=== PATIENT | male | born 1965 | race Hispanic/Latino ===

== ENCOUNTER 2024-01-31 07:35 | Emergency (ER) | payer SELFPAY ==
--- NOTE | ~2024-01-31 | CT_ITS ---
Non-contrast Head CT History: Status post fall Technique: Axial non-contrast imaging of the brain was performed. Dose reduction technique was used on this scan by utilizing automated exposure control and iterative reconstruction technique. The dose -length product (DLP) was 605.33 mGy-cm. Findings: There is no evidence of intracranial hemorrhage, mass lesion, or acute infarct. Brain par enchyma appears normal. The ventricles and subarachnoid spaces are normal in size. The calvarium ap pears normal. The visualized paranasal sinuses and mastoid air cells are clear. Impression: No significant abnormality seen. Reviewed, dictated and finalized at location . Impression: No significant abnormality seen.
--- NOTE | ~2024-01-31 | CT_ITS ---
CT cervical spine wo con Ordering provider: Gomez Joshi MD History: . Fall down 6 stairs. ETOH, Head trauma . Comparison: None. Technique: CT of the cervical spine was performed without contrast. Sagittal and coronal reformatted images were also obtained and reviewed. Automated exposure control and iterative reconstruction nabeel hnique were employed. The dose-length product was 279.74 mGy-cm. FINDINGS: VERTEBRAE: No subluxation or acute fracture. The occipital condyles are intact. Degenerative changes of the spine. DISC SPACES: Normal. PARASPINOUS SOFT TISSUES: Normal. IMPRESSION: No acute osseous abnormality cervical spine. Reviewed, dictated and finalized at location A.
[2024-01-31 07:38] VITALS: BP 147/77; PULSE 77; RESP 15; TEMP 36.4; O2SAT 97
--- NOTE | 2024-01-31 07:51 | ED.GENADULT ---
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 58-year-old male with history of daily alcohol use presenting after a fall. The daughter he drink more than usual last night fell down 6 stairs outside of his house. He struck his head and sustained a laceration to his scalp. Patient denies loss of consciousness or use of blood thinners. He denies any other injuries. He denies any prodromal symptoms before the fall. Unknown last tetanus. Related Data Allergies Allergy/AdvReac Type Severity Reaction Status Date / Time No Known Allergies Allergy Verified 01/31/24 07:38 [facility] Past Medical History Medical History ETOHism Exam Narrative: APPEARANCE: No apparent distress. Smells of alcohol Head: 5 cm laceration to the right parietal scalp. EYES: EOMI, NOSE: Atraumatic NECK: Trachea midline RESPIRATORY: No increased rate of breathing CARDIOVASCULAR: RRR, ABDOMINAL: Non-distended MUSCULOSKELETAl: No obvious deformities patient was palpated head to toe no other areas of pain. Neuro: Cranial nerves 2-12 grossly intact. Sensation light touch, motor function cerebellar function intact for 4 extremities. Gait exam was deferred SKIN:: Warm, dry. Normal color PSYCHIATRIC: Normal affect Course Vital Signs Vital signs: Vital Signs Temperature 97.5 F L 01/31/24 07:38 Pulse Rate 77 01/31/24 07:38 Respiratory Rate 15 01/31/24 07:38 Blood Pressure 147/77 H 01/31/24 07:38 Pulse Oximetry 97 01/31/24 07:38 Oxygen Delivery Room Air 01/31/24 07:38 Temperature 97.5 F L 01/31/24 07:38 Pulse Rate 77 01/31/24 07:38 Respiratory Rate 15 01/31/24 07:38 Blood Pressure 147/77 H 01/31/24 07:38 Pulse Oximetry 97 01/31/24 07:38 Oxygen Delivery Room Air 01/31/24 07:38 Medical Decision Making [facility] Narrative Medical decision making narrative: -Course: 58-year-old male presenting with a fall and a scalp laceration. Scalp laceration was repaired. CT head and C-spine negative for acute injury. patient discharged. -DDX includes but is not limited to: Concussion, ICH scalp injury -Co-morbidities complicating care: Daily alcohol use, -Independent interpretation of studies: CT head and C-spine negative. -Procedures: 5 cm laceration to the scalp repaired using x6 4-0 Prolene sutures. Wound explored without foreign bodies and irrigated copiously. -Interventions: Tdap -Shared decision making / Disposition:discharged. Vital Signs Vital Signs: Vital Signs Temperature 97.5 F L 01/31/24 07:38 Pulse Rate 77 01/31/24 07:38 Respiratory Rate 15 01/31/24 07:38 Blood Pressure 147/77 H 01/31/24 07:38 Pulse Oximetry 97 01/31/24 07:38 Oxygen Delivery Room Air 01/31/24 07:38 Temperature 97.5 F L 01/31/24 07:38 Pulse Rate 77 01/31/24 07:38 Respiratory Rate 15 01/31/24 07:38 Blood Pressure 147/77 H 01/31/24 07:38 Pulse Oximetry 97 01/31/24 07:38 Oxygen Delivery Room Air 01/31/24 07:38 Discharge Plan Discharge Clinical Impression: Laceration, Fall Patient Disposition: Home, Self-Care Condition: Stable Instructions: Antibiotic Form, Care For Your Stitches (ED) Additional Instructions: He was seen emergency department after a fall. Please be careful when going down the stairs after drinking a large amount of alcohol. Please return to any medical professional in 7 days for suture removal. Return to ED if he develops signs of infection confusion or you would like re-evaluation Fue atendido en urgencias tras michael ca?da. Tenga cuidado al bajar las escaleras despu?s de melisa bebido michael gran cantidad de alcohol. Vuelva a consultar a un profesional m?dico en 7 d?as para que le extraigan los puntos. V
[2024-01-31] MEDS: TETANUS,DIPHTHERIA,AC PERTUSSIS ADULT (0.5 ML) BOOSTRIX IM (07:59)
[2024-01-31 09:10] VITALS: BP 146/76; PULSE 74; RESP 16; TEMP 36.7; O2SAT 99
== END 2024-01-31 09:12 | disposition home or self-care (01) ==
PROVIDERS: Emergency Provider Emergency Medicine
DX: S01.01XA Laceration without foreign body of scalp, initial encounter (principal); W10.9XXA Fall (on) (from) unspecified stairs and steps, initial encounter; Z23 Encounter for immunization
CPT/HCPCS: 12002; 70450; 72125; 90471; 90715; 99284

== ENCOUNTER 2025-02-04 19:48 | Emergency (ER) | payer SELFPAY ==
--- OUTSIDE RECORDS SUMMARY | 2025-02-04 19:49 | XMS_ITS | Clinical Summary ---
Author Organization [facility] Address [address] [place] [address] Care Team Providers Care Delivery Truck Driver Name Role Phone Unavailable Primary Care Provider Unavailabl e Source Comments You are receiving this document as you are listed as the PCP, follow-upprovider, or the patient hasbeen referred to you for consultation. This is incompliance with [facility] Transitions of Care Requirement. Note: Specific treatmentrecords and notes about services for mental health, developmental disabilities,alcoholism, drug dependence, or substance abuse, you will need to contact theMedical Records Department at [phone] and complete a separate Release ofAuthorization form. They are also available to answer other questions.[facility] Social History Tobacco Use Types Packs/Day Years Used Date Smoking Tobacco: Never Assessed Sex and Gender Information Value Date Recorded Sex Assigned at Not on file Gender Identity Not on file Sexual Orientation Not on file Plan of Treatment Health Maintenance Due Date Last Done Comments ANNUAL DEPRESSION SCREENING,ADULT 1965 ANNUAL BMI COUNSELING 1966 HIV SCREEN 11/22/1979 ADULT VACCINE: TETANUS( TD) BOOSTER,EVERY 10 YR 11/22/1983 CHOL SCREENING: EVERY 5 YEARS 1984 CA SCREENING: COLONOSCOPY,EV [place]ARK 10 YEARS,ROUTINE 09/21/2014 ADULT VACCINE: SHINGRIX (1 of 2) 2014 Covid-19 Vaccine ( - 2023-2 5 season) 2024 INFLUENZA VACCINE (#1) 2025 ADULT RSV > 60 YRS & PREGNAN T PATIENTS (1 - 1-dose 75+ series) 11/22/2039 PEDS RSV < 20 MON Aged Out No longer eligible based on patient's age to complete this topic PNEUMOCOCCAL VACCINE Aged Out No long er eligible based on patient's age to complete this topic
--- OUTSIDE RECORDS SUMMARY | 2025-02-04 19:49 | XMS_ITS | Clinical Summary ---
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 Automation Analyst Name Role Phone Unavailable Primary Care Provider Unavailabl e Allergies No known active allergies Medications No known medications Active Problems Problem Noted Date Diagnosed Date Smoker 09/24/2016 Social History Tobacco Use Types Packs/Day Years Used Date Smoking Tobacco: Every Day Cigarettes Smokeless Tobacco: Never Tobacco Cessation:Ready to Q uit: No; Counseling Given: Yes Intimate Partner Violence Answer Date R ecorded Feels Safe at Home Not on file 02/26/2021 Sex and Gender Information Value Date Recorded Sex Assigned at Not on file Legal Sex Male 11:10 AM CDT Gender Identity Not on file Sexual Orientation Not on file Last Filed Vital Signs Vital Sign Reading Time Taken Comments Blood Pressure 138/70 09/24/2016 11:46 AM CDT Pulse 84 09/24/2016 11:46 AM CDT Temperature 37.1 C (98.7 F) 09/24/2016 11:46 AM CDT Respiratory Rate 18 09/24/2016 11:46 AM CDT Oxygen Saturation - - Inhaled Oxygen Concentration - - Weight 76.7 kg (169 lb) 09/24/2016 11:46 AM CDT Height 165.1 cm (5' 5) 09/24/2016 11:46 AM CDT Body Mass Index 28.12 09/24/2016 11:46 AM CDT Plan of Treatment Health Maintenance Due Date Last Done Comments Annual Preventive Visit 1965 HIV Screening 1977 Tdap/DTaP/Td Vaccine (1 - Tdap) 11/22/1983 CT Colonography 11/22/1999 Colonoscopy 11/22/1999 Colorectal Cancer Screening 11/22/1999 FIT-DNA 11/22/1999 FIT/FOBT 11/22/1999 Sigmoidoscopy 11/22/1999 Pneumococcal Vaccine: 50+ Years (1 of 1 - PCV) 015 Zoster Vaccine (1 of 2) 2014 COVID-19 Vaccine (1 - 2023- season) 2024 Influenza Vaccine (#1) 2025 RSV 60+ and Currently (1 - 1-dose 75+ series) 11/22/2039
--- OUTSIDE RECORDS SUMMARY | 2025-02-04 19:50 | XMS_ITS | Clinical Summary ---
Author Organization [facility] Address [address] [place] [address] Care Team Providers Care Comprehensive Advisor Name Role Phone Pcp, No Primary Care Provider [phone] Allergies No known active allergies Medications metFORMIN (GLUCOPHAGE) 500 MG tablet Take 500 mg by mouth 2 (two) times a day with meals. Active amLODIPine (NORVASC) 10 MG tablet Take 10 mg by mouth daily. Active cholecalciferol , vitamin D3, (VITAMIN D3) 1,000 Units tablet Take 1,000 Units by mouth daily. Active cyanocobalamin 50 mcg tablet Take 50 mcg by mouth daily. Active omeprazole (PriLOSEC) 40 MG capsuleIndicati ons:Perforated duodenal ulcer (HCC) Take 1 capsule (40 mg total) by mouth daily. 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 Chronic cholecystitis 11/10/2014 Hematemesis 11/09/2014 Duodenitis 11/09/2014 Family History Medical History Relation Comments Cholelithiasis Brother Cholelithiasis Father Diabetes Mother Cholelithiasis Sister Cancer Neg Hx Relation Status Comments Brother Daughter Alive Father Mother Sister Son Alive Social History Tobacco Use Types Packs/Day Years Used Date Smoking Tobacco: Every Day Cigarettes 1.5 20 Smokeless Tobacco: Never Tobacco Cessation:Ready to Q uit: Yes; Counseling Given: Yes Alcohol Use Standard Drinks/Week Comments Yes 42 (1 standard drink = 0.6 oz pure alcohol) Previously drank on a daily basis. Last ETOH 02/22/2021 AUDIT-C Answer Date Recorded Q1: How often do you have a drink containing alcohol? 4 or more times a week 02/25/2021 Q2: How many drinks containi ng alcohol do you have on a typical day when you are drinking? 3 or 4 Frequency of Binge Drinking Not on file 02/02 PHQ-2 Answer Date Recorded PHQ-2 Score 0 02/25/2021 Hunger Vital Sign Answer Date Recorded Within the past 12 months, y ou worried that your food would run out before you got the money to buy more. Never true 02/26/20 21 Within the past 12 months, t he food you bought just didn't last and you didn't have money to get more. 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 Gender Identity Not on file Sexual Orientation Not on file Last Filed Vital Signs Vital Sign Reading Time Taken Comments Blood Pressure 150/73 03/13/2021 3:09 PM CDT Pulse 79 03/13/2021 3:09 PM CDT Temperature 37.3 C (99.2 F) 03/07/2021 1:17 PM CDT Respiratory Rate 20 03/13/2021 3:09 PM CDT Oxygen Saturation 98% 03/07/2021 1:17 PM CDT Inhaled Oxygen Concentration - - Weight 70.4 kg (155 lb 3.3 oz) 03/07/2021 1:17 P M CDT Height 167.6 cm (5' 6) 03/07/2021 1:17 PM CDT Body Mass Index 25.05 03/07/2021 1:17 PM CDT Plan of Treatment Health Maintenance Due Date Last Done Comments Annual Wellness Exam with BUZZ P (Rolling Yr) 1964 CT Colonography 1964 Colonoscopy 1964 Colorectal Cancer Screening 1964 FIT / gFOBT Colorectal Cance r Screening 1964 FIT-DNA (Cologuard) 1964 Flexible Sigmoidoscopy 1964 Hepatitis C Screening 1982 DTaP,Tdap,and Td Vaccines (1 - Tdap) 11/22/1983 Pneumococcal Vaccine: 50+ Ye ars (1 of 1 - PCV) 2014 Zoster Vaccine (Shingles) (1 of 2) 2014 COVID-19 Vaccine (1 - 2023-2 5 season) 2024 Influenza Vaccine (#1) 2025 Hepatitis A Vaccines Aged Out No long er eligible based on patient's age to complete this topic Hepatitis B Vaccines Aged Out No long er eligible based on patient's age to complete this topic Meningococcal Vaccine Aged Out No johnathan dario eligible based on patient's age to complete this topic Care Teams Comprehensive Advisor Relationship Specialty Start Date End Date Pcp, No [address] [place] [address] PCP - General 02/25/21
--- OUTSIDE RECORDS SUMMARY | 2025-02-04 19:50 | XMS_ITS | Clinical Summary ---
Author Organization [facility] Address [address] [place] [address] Care Team Providers Care Band Shover Name Role Phone Provider, No Pcp Primary Care Provider Unavailab le Source Comments [facility],non-owned Affiliates and Associated Physician Practices is amultiple site organization consisting of ambulatory clinics and hospital sitesin [place], [place], [place] and [place]. This disclosure is being madepursuant to the Care Everywhere program and may not contain all information available regarding this patient. Last updated 18.[facility] Allergies Active Allergy Reactions Criticality Noted Date Comments Penicillins Other 01/14/2025 Patient states many years ago in [place] it made him faint. Medications * Be aware that medications may not be up to date on this document. Alwaysverify current medications with the patient. acetaminophen (Tylenol) 325 MG tabletIndicati ons:Pain Take 2 (two) tablets by mouth every 6 hours as needed Maximum allowable Acetaminophen amount = 4 Grams (4000 mg) / 24 hours. Reasons: Pain 01/19/20 25 Active aspirin (Aspirin) 81 MG chew tablet Take 1 (one) tablet by mouth once daily (chew and swallow) 30 tablet 5 12:20 PM CDT 01/20/20 25 Active atorvastatin (Lipitor) 40 MG tablet Take 1 (one) tablet by mouth at bedtime 30 tablet 5 12:20 PM CDT 01/19/20 25 Active lisinopril (Prinivil; Zestril) 10 MG tabletIndicati ons:Hypertensi on Take 1 (one) tablet by mouth once daily Reasons: High Blood Pressure 30 tablet 5 12:20 PM CDT 01/20/20 25 Active clopidogrel (plaVIX) 75 MG tablet Take 1 (one) tablet by mouth once daily 30 tablet 11 5 12:20 PM CDT 01/20/20 25 Active nicotine (Nicoderm CQ) 21 MG/24HR patchIndicatio ns:Dysarthria, Weakness on right side of face,Lower abdominal pain Apply 1 (one) patch to skin once daily 30 patch 01/20/20 25 Active doxycycline monohydrate 100 MG capsule Take 1 (one) capsule by mouth every 12 hours for 5 days 10 capsule 01/19/20 25 2024 Discontinued doxycycline monohydrate 100 MG capsule Take 1 (one) capsule by mouth every 12 hours for 5 days 10 capsule 5 12:20 PM CDT 01/19/20 25 2024 Active Problems Problem Noted Date Diagnosed Date Acute ischemic left MCA stroke 01/14/2025 RUE weakness 01/06/2025 Sustained horizontal conjuga te gaze deviation, ipsilateral type 01/06/2025 Right leg weakness 01/06/2025 Aphasia 01/06/2025 Internal carotid artery stenosis, left Stenosis of left carotid artery 01/06/2025 Type 2 diabetes mellitus with other specified co mplication 01/06/2025 Smoker 01/06/2025 Cardiac pacemaker 01/06/2025 Weakness on right side of face 01/06/2025 Encounters Date Type Department Care Team Description 01/28/2025 1:00 PM CDT Clinical Support [facility] - Cardiology [address] [place] [address] Sinus bradycardia 01/28/2025 Travel 01/17/2025 1:37 PM CDT Anesthesia Event [facility] - Cardiac Public Service Director [facility] [place] [address] Félix Horowitz MD Kister, Joseph Anthony, CAA 01/17/2025 11:25 AM CDT - 01/17/2025 2:05 PM CDT Surgery [facility] - Cardiac Public Service Director [address] [place] [address] Jada Connor MD Pacemaker Generator Replacement Dual Chamber 01/14/2025 7:58 AM CDT Anesthesia Event [facility] IVR [address] [place] [address] Yancy Munroe MD McDowell, Jacob A, CAA 01/06/2025 8:24 AM CDT - 01/18/2025 11:51 AM CDT Hospital Encounter [facility] [address] ACUTE [address] [place] [address] Haider Ellison MD Esechie, Aimalohi, MD Demars, MD Rolando Whitfield, MD Fil[facility] Neurology Discharge Disposition: Home or Self Care 01/06/2025 Travel from Last 3 Months Social History Tobacco Use Types Packs/Day Years Used Date Smoking Tobacco: Every Day Cigarettes Tobacco Cessation:Ready to Q uit: Not Asked; Counseling Given: Not Answered Alcohol Use Standard Drinks/Week Comments Yes 0 (1 standard drink = 0.6 oz pur e alcohol) AUDIT-C Answer Date Recorded Q1: How often do you have a drink containing alcohol? 4 or more times a week 01/07/2025 Q2: How many drinks containi ng alcohol do you have on a typical day when you are drinking? 5 or 6 Q3: How often do you have si x or more drinks on one occasion? Monthly 01/07/2025 Overall Financial Resource Strain (CARDIA) Answe r Date Recorded How hard is it for you to pa y for the very basics like food, housing, medical care, and heating? Not very hard 01/07/2025 PHQ-2 Answer Date Recorded Patient Health Questionnaire-2 Score 0 01/17/2025 [facility] Occupat ional [facility] - Occupational Stress Questionnaire Answer Date Recorded Do you feel stress - tense, restless, nervous, or anxious, or unable to sleep at night because your mind is troubled all the time - these days? To some extent 01/07/2025 Hunger Vital Sign Answer Date Recorded Within the past 12 months, y ou worried that your food would run out before you got the money to buy more. Never true 01/08/20 25 Within the past 12 months, t he food you bought just didn't last and you didn't have money to get more. Never true 01/07/2025 PRAPARE - Transportation Answer Date Re corded In the past 12 months, has l ack of transportation kept you from medical appointments or from getting medications? No 01/2025 In the past 12 months, has l ack of transportation kept you from meetings, work, or from getting things needed for daily living? No 01/07/2025 Housing Stability Vital Sign Answer Karsten e Recorded In the last 12 months, was t here a time when you were not able to pay the mortgage or rent on time? No 01/07/2025 In the past 12 months, how m any times have you moved where you were living? 0 01/07/2025 At any time in the past 12 m [facility], were you homeless or living in a assisted (including now)? No 01/07/2025 Sex and Gender Information Value Date Recorded Sex Assigned at Not on file Legal Sex Male 8:16 AM CDT Gender Identity Not on file Sexual Orientation Not on file Last Filed Vital Signs Vital Sign Reading Time Taken Comments Blood Pressure 123/62 01/18/2025 7:49 AM CDT Pulse 61 01/18/2025 7:49 AM CDT Temperature 36.4 C (97.5 F) 01/18/2025 7:49 AM CDT Respiratory Rate 18 01/18/2025 3:54 AM CDT Oxygen Saturation 100% 01/18/2025 7:49 AM CDT Inhaled Oxygen Concentration - - Weight 58.5 kg (128 lb 15.5 oz) 01/15/2025 4:00 AM CDT Height 170.2 cm (5' 7) 01/07/2025 10:0 0 AM CDT Body Mass Index 20.2 01/07/2025 10:00 AM CDT Plan of Treatment Upcoming Encounters Date Type Department Care Team (Late st Contact Info) Description 02/27/2025 11:00 AM CDT Office Visit [facility] - Neurology [address] [facility], Critical [place] [address] Filiberto Marshall MD [address] [place] [address] 03/26/2025 2:30 PM CDT Office Visit [facility] - Cardiology [address], [place] [address] [place] [phone] Do Lewis MD 04/25/2025 1:00 AM CDT Procedure visit [facility] - Cardiology [address], [place] [address] [place] [phone] 07/25/2025 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 - Cardiology [address], [address] [address] Health Maintenance Due Date Last Done Comments COLOGUARD (AGES 45-75) - COLON CA SCREENING 1964 COLON MONITORING 1964 COLONOSCOPY - COLON CA SCREENING 1964 CT COLONOGRAPHY - COLON CA SCREENING 1964 Colorectal Cancer Screening 1964 FIT - COLON CA SCREENING 1964 FLEX SIG - COLON CA SCREENING 1964 HIV SCREENING 11/22/1979 HEPATITIS C SCREENING 11/17/1982 DTAP/TDAP/TD VACCINES (1 - Tdap) 11/22/1983 PNEUMOCOCCAL VACCINE 50+ (1 of 2 - PCV) 11/22/1983 ZOSTER VACCINE (1 of 2) 2014 COVID-19 VACCINE (1 - season) 2024 DIABETES - URINE PROTEIN SCREENING 07/04/2024 Respiratory Syncytial Virus (RSV) Vaccine Pt: or over 60 yrs (1 - Risk 60-74 years 1-dose series) 2024 DIABETES RETINOPATHY SCREENING 01/06/2025 DIABETES-FOOT EXAM WITH MONOFILAMENT 01/06/2025 INFLUENZA VACCINE (#1) 2025 DIABETES-HGB A1C 07/09/2025 01/06/2025 DIABETES-SERUM CREATININE 01/18/20262024, 01/17/2025, 01/16/2025, Additional history exists DEPRESSION SCREENING Completed 01/06/2025 HEPATITIS B VACCINE Aged Out No longe r eligible based on patient's age to complete this topic HIB VACCINE Aged Out No longer eligi ble based on patient's age to complete this topic HPV VACCINE Aged Out No longer eligi ble based on patient's age to complete this topic MENINGOCOCCAL (Group B) VACCINE SHARED DECISION-MAKING Aged Out No longer eligible based on patient's age to complete this topic MENINGOCOCCAL GROUPS A/C/Y/W VACCINE Aged Out No longer eligible based on patient's age to complete this topic Medical Devices Implanted Type Area Reverse Unit Operator Device Identifier Shelf Expiration Date Model / Serial / Lot [id number] Cardiac Lead Squ[place]ka Nathaniel [id number] / / [id number] Cardiac Lead [place] [employer] Nathaniel [id number] / / [place] [employer] Dual Chamber L311 Pacemaker Heart Squ[place]ka Nathaniel [id number] / / Stent Xact 6-8mm 30mm Crtd Slf Xpd Cls Implanted:Qty : 1 on 01/14/2025 at [facility] Left: Carotid More Vascular [id number] 10/01/2026 [id number] / / [id number] Pacemkr Acld Pacesafe Ltd Nxt Easyview - [id number] Implanted:Qty : 1 on 01/17/2025 by Jada Connor MD at [facility] Left: Chest [place] [employer] Scimed [id number] 09/06/2026 [id number] / [id number] / NA Env Defib 3.3x2.9in Aigisrx Icd Tyrx Lg - [id number] Implanted:Qty : 1 on 01/17/2025 by Jada Connor MD at [facility] Left: Chest Medtronic Inc [id number] 10/04/2025 [id number] / [id number] / [id number] Procedures Procedure Name Priority Date/Time Associated Diagnosis Comments PHOSPHORUS BLOOD Routine 01/18/2025 4:12 AM CDT MAGNESIUM BLOOD Routine 01/18/2025 4:12 AM CDT CBC W/O DIFFERENTIAL Routine 01/18/2025 4:12 AM CDT BASIC METABOLIC PANEL (CALCIUM TOTAL) Routine 01/18/2025 4:12 AM CDT ELECTROPHYSIOLOGY PROCEDURE Routine 01/17/2025 3:10 PM CDT Cardiac pacemaker LIPOPROTEIN A AM Draw 01/17/2025 3:11 AM CDT APOLIPOPROTEIN B AM Draw 01/17/2025 3:11 AM CDT PHOSPHORUS BLOOD Routine 01/17/2025 3:11 AM CDT MAGNESIUM BLOOD Routine 01/17/2025 3:11 AM CDT CBC W/O DIFFERENTIAL Routine 01/17/2025 3:11 AM CDT BASIC METABOLIC PANEL (CALCIUM TOTAL) Routine 01/17/2025 3:11 AM CDT CARDIAC PROCEDURE ORDER 01/17/2025 CARDIAC PROCEDURE ORDER 01/17/2025 CARDIAC PROCEDURE ORDER 01/17/2025 PHOSPHORUS BLOOD Routine 01/16/2025 2:47 AM CDT MAGNESIUM BLOOD Routine 01/16/2025 2:47 AM CDT CBC W/O DIFFERENTIAL Routine 01/16/2025 2:47 AM CDT BASIC METABOLIC PANEL (CALCIUM TOTAL) Routine 01/16/2025 2:[address] CARDIAC ANGIO STRUCT MORPH PENDING DISCHARGE 01/15/2025 10:35 AM CDT Acute ischemic left MCA stroke (HCC) Facial droop due to acute stroke (HCC) Sustained horizontal conjugate gaze deviation, contralateral type Aphasia Weakness on right side of face PT EVAL AND TREAT Routine 01/15/2025 9:43 AM CDT OT EVAL AND TREAT Routine 01/15/2025 9:43 AM CDT BASIC METABOLIC PANEL (CALCIUM TOTAL) Timed 01/15/2025 8:25 AM CDT CBC W/O DIFFERENTIAL Routine 01/14/2025 11:30 PM CDT BASIC METABOLIC PANEL (CALCIUM TOTAL) Routine 01/14/2025 11:[address] ANGIO ABDOMEN PELVIS STAT 01/15/20 2:24 PM CDT Lower abdominal pain GLUCOSE - POINT OF CARE Routine 01/15/20 10:16 AM CDT IR CAROTID OR VERTEBRAL STENT Routine 01/14/2025 10:07 AM CDT Acute ischemic left MCA stroke (HCC) ACT LR - POCT ([facility]) Routine 01/14/2025 9:00 AM CDT ENDOTRACHEAL TUBE NOTE Routine 8:29 AM CDT PERIPHERAL IV NOTE Routine 01/14/2025 8:19 AM CDT PHOSPHORUS BLOOD Routine 01/14/2025 5:56 AM CDT MAGNESIUM BLOOD Routine 01/14/2025 5:56 AM CDT CBC W/O DIFFERENTIAL Routine 01/14/2025 5:56 AM CDT BASIC METABOLIC PANEL (CALCIUM TOTAL) Routine 01/14/2025 5:56 AM CDT PHOSPHORUS BLOOD Routine 01/13/2025 5:34 AM CDT MAGNESIUM BLOOD Routine 01/13/2025 5:34 AM CDT CBC W/O DIFFERENTIAL Routine 01/13/2025 5:34 AM CDT BASIC METABOLIC PANEL (CALCIUM TOTAL) Routine 01/13/2025 5:34 AM CDT PHOSPHORUS BLOOD Routine 01/12/2025 5:19 AM CDT MAGNESIUM BLOOD Routine 01/12/2025 5:19 AM CDT CBC W/O DIFFERENTIAL Routine 01/12/2025 4:38 AM CDT BASIC METABOLIC PANEL (CALCIUM TOTAL) Routine 01/12/2025 4:38 AM CDT PHOSPHORUS BLOOD Routine 01/11/2025 5:33 AM CDT MAGNESIUM BLOOD Routine 01/11/2025 5:33 AM CDT CBC W/O DIFFERENTIAL Routine 01/11/2025 5:33 AM CDT BASIC METABOLIC PANEL (CALCIUM TOTAL) Routine 01/11/2025 5:33 AM CDT PHOSPHORUS BLOOD Routine 01/10/2025 3:58 AM CDT MAGNESIUM BLOOD Routine 01/10/2025 3:58 AM CDT CBC W/O DIFFERENTIAL Routine 01/10/2025 3:58 AM CDT BASIC METABOLIC PANEL (CALCIUM TOTAL) Routine 01/10/2025 3:58 AM CDT EKG 12-LEAD Routine 01/09/2025 5:11 PM CDT Cardiac pacemaker ECHO COMPLETE W CONTRAST W BUBBLE STUDY Routine 01/09/2025 4:32 PM CDT RUE weakness Acute ischemic left MCA stroke (HCC) MRI BRAIN WO CONTRAST Routine 01/09/2025 1:12 PM CDT Acute ischemic left MCA stroke (HCC) PHOSPHORUS BLOOD Routine 01/09/2025 5:20 AM CDT MAGNESIUM BLOOD Routine 01/09/2025 5:20 AM CDT CBC W/O DIFFERENTIAL Routine 01/09/2025 5:20 AM CDT BASIC METABOLIC PANEL (CALCIUM TOTAL) Routine 01/09/2025 5:20 AM CDT PHOSPHORUS BLOOD Routine 01/08/2025 10:09 AM CDT MAGNESIUM BLOOD Routine 01/08/2025 10:09 AM CDT GLUCOSE - POINT OF CARE Routine 01/09/20 6:19 AM CDT CBC W/O DIFFERENTIAL Routine 01/07/2025 11:39 PM CDT BASIC METABOLIC PANEL (CALCIUM TOTAL) Routine 01/07/2025 11:39 PM CDT GLUCOSE - POINT OF CARE Routine 01/08/20 4:59 PM CDT GLUCOSE - POINT OF CARE Routine 01/08/20 12:47 PM CDT XR CHEST 1VW PORTABLE Routine 01/07/2025 11:46 AM CDT Acute ischemic left MCA stroke (HCC) CT HEAD WO CONTRAST Routine 01/07/2025 10:06 AM CDT RUE weakness Acute ischemic left MCA stroke (HCC) XR SHOULDER RIGHT 1VW Routine 01/07/2025 8:56 AM CDT RUE weakness Acute ischemic left MCA stroke (HCC) Right sided weakness PHOSPHORUS BLOOD Routine 01/07/2025 8:37 AM CDT MAGNESIUM BLOOD Routine 01/07/2025 8:37 AM CDT GLUCOSE - POINT OF CARE Routine 01/08/20 8:35 AM CDT PHOSPHORUS BLOOD Routine 01/07/2025 2:33 AM CDT MAGNESIUM BLOOD Routine 01/07/2025 2:33 AM CDT LIPID PROFILE Routine 01/07/2025 2:33 AM CDT CBC W/O DIFFERENTIAL Routine 01/07/2025 2:33 AM CDT BASIC METABOLIC PANEL (CALCIUM TOTAL) Routine 01/07/2025 2:33 AM CDT GLUCOSE - POINT OF CARE Routine 01/07/20 8:42 PM CDT HEMOGLOBIN A1C Add on 01/06/2025 4:48 PM CDT GLUCOSE - POINT OF CARE Routine 01/07/20 4:47 PM CDT TROPONIN-I HIGH SENSITIVE REFLEX 1HOUR Timed 01/06/2025 11:26 AM CDT PTT [facility] STAT 01/06/2025 10:34 AM CDT PT-INR [facility] STAT 01/06/2025 10:[address] ANGIO BRAIN NECK STROKE STAT 01/06/2025 9:09 AM CDT RUE weakness PHOSPHORUS BLOOD STAT 01/06/2025 8:57 AM CDT MAGNESIUM BLOOD STAT 01/06/2025 8:57 AM CDT TROPONIN-I HIGH SENSITIVE BASELINE + 1HR STAT 01/06/2025 8:57 AM CDT TROPONIN-I HIGH SENSITIVE STAT 01/06/2025 8:57 AM CDT COMPREHENSIVE METABOLIC PANEL STAT 01/06/2025 8:57 AM CDT CBC W AUTO DIFFERENTIAL STAT 01/07/20 8:57 AM CDT PT EVAL AND TREAT Routine 01/06/2025 8:44 AM CDT OT EVAL AND TREAT Routine 01/06/2025 8:44 AM CDT ISTAT CREATININE Routine 01/06/2025 8:36 AM CDT INR WHOLE BLOOD - POINT OF CARE (IP) STROKE Routine 01/06/2025 8:[address] BRAIN STROKE STAT 01/06/2025 8:23 AM CDT RUE weakness from Last 3 Months Results * (ABNORMAL) CBC W/O DIFFERENTIAL (01/18/2025 4:12 AM CDT) Only the most recent of12 resultswithin the time period is included. WBC 12.9(H) 4.0 - 10.7 x10E9/L 01/18/2025 4:32 AM [facility] RBC Count 3.86(L) 4.30 - 5.80 x10E12/L 01/18/2025 4:32 AM [facility] Hemoglobin 11.8(L) 13.3 - 17.5 g/dL 01/18/2025 4:32 AM [facility] Hematocrit 34.5(L) 38.7 - 51.1 % 01/18/2025 4:32 AM [facility] MCV 89.4 80.0 - 98.0 fL 01/18/2025 4:32 AM [facility] MCH 30.6 26.7 - 33.6 pg 01/18/2025 4:32 AM [facility] MCHC 34.2 31.7 - 36.3 g/dL 01/18/2025 4:32 AM [facility] RDW-CV 12.5 11.3 - 14.8 % 01/18/2025 4:32 AM [facility] Platelet Count 251 150 - 420 x10E9/L 01/18/2025 4:32 AM [facility] MPV 10.2 7.8 - 11.4 fL 01/18/2025 4:32 AM [facility] Blood BLOOD SPECIMEN / Unknown Lab Venipuncture / Unknown 01/18/2025 4:12 AM CDT 01/18/2025 4:25 AM CDT us Damaris Schmidt MD LAB - HEMATOLOGY ORDERABLES Final Result [facility] [address] [place] [address], [facility] [phone] * (ABNORMAL) BASIC METABOLIC PANEL (CALCIUM TOTAL) (01/18/2025 4:12 AM CDT) Only the most recent of13 resultswithin the time period is included. BUN 16 7 - 26 mg/dL 01/18/2025 4:58 AM [facility] Creatinine 0.47(L) 0.71 - 1.16 mg/dL 01/18/2025 4:58 AM [facility] Sodium 133(L) 136 - 145 mmol/L 01/18/2025 4:58 AM [facility] Potassium 4.2 3.5 - 4.5 mmol/L 01/18/2025 4:58 AM [facility] Chloride 104 98 - 107 mmol/L 01/18/2025 4:58 AM [facility] CO2 22 22 - 29 mmol/L 01/18/2025 4:58 AM [facility] Glucose 119(H) 70 - 99 mg/dL 01/18/2025 4:58 AM [facility] Calcium 8.7 8.4 - 10.2 mg/dL 01/18/2025 4:58 AM [facility] Anion Gap 7 6 - 16 01/18/2025 4:58 AM [facility] BUN/Creatinine Ratio 34(H) 7 - 23 01/18/2025 4:58 AM CDT [facility] Osmolality Calculated 278 275 - 295 mOsm/kg 01/18/2025 4:58 AM CDT [facility] eGFR by CKD-EPI >90 >=90 mL/min/1.7 3 m2 01/18/2025 4:58 AM CDT [facility] Comment:Estimated Glomerular Filtration Rate (eGFR) calculated using the CKD-EPI Creatinine Equation (2020), per the National Kidney Foundation and [place] Society of Nephrology recommendations. Blood BLOOD SPECIMEN / Unknown Lab Venipuncture / Unknown 01/18/2025 4:12 AM CDT 01/18/2025 4:25 AM CDT us Haider Ellison MD LAB - CHEMISTRY ORDERABLES Final Result Performing Organization Address City/[facility]/ZIP Co de Phone Number [address] [address], [place] [phone] * PHOSPHORUS BLOOD (01/18/2025 4:12 AM CDT) Only the most recent of13 resultswithin the time period is included. Phosphorus 3.9 2.8 - 5.1 mg/dL 01/18/2025 4:58 AM CDT [facility] Blood BLOOD SPECIMEN / Unknown Lab Venipuncture / Unknown 01/18/2025 4:12 AM CDT 01/18/2025 4:25 AM CDT us Damaris Schmidt MD LAB - CHEMISTRY ORDERABLES F inal Result [address] [address], [place] [phone] * MAGNESIUM BLOOD (01/18/2025 4:12 AM CDT) Only the most recent of13 resultswithin the time period is included. Magnesium 1.8 1.6 - 2.6 mg/dL 01/18/2025 4:58 AM CDT [facility] Blood BLOOD SPECIMEN / Unknown Lab Venipuncture / Unknown 01/18/2025 4:12 AM CDT 01/18/2025 4:25 AM CDT us Damaris Schmidt MD LAB - CHEMISTRY ORDERABLES F inal Result [facility] [address] [place] [address], [facility] [phone] * CCL PACEMAKER GENERATOR REPLACEMENT DUAL CHAMBER (01/17/2025 3:10 PM CDT) Anatomical Region Laterality Modality X-Ray Angiograph y Narrative 01/17/2025 5:50 PM CDT 1. Pacemaker generator change . Procedure Details Estimated Blood Loss: 10 cc mL Procedure Details and Comments: The patient was brought to the EP lab in a fasting, non-sedated state. He was prepped and draped in a sterile fasion. Lidocaine 1% was infiltrated to the left pectoral site for local anesthesia. The device pocket was then re-opened along the old incision line using a combination of electrocautery, sharp and blunt dissection. The lead(s) and generator were removed from the pocket. The generator was then disconnected. The device pocket was then irrigated with antiobiotic containing solution. Adequate pacing and sensing parameters of the atrial and ventricular leads were tested and confirmed. The new generator was then connected to the leads and re-positioned within the pocket. Estimated blood loss was less than 10 cc's. Fidencio was placed in the pocket for additional hemostasis. Tyrx pouch was used. The pocket was closed in three layers using 2-0 Vicryl for the deep, 3-0 Vicryl for the subcutaneous, and 4-0 Strata-fix for the skin. The skin edges were approximated with steri-strips and surgical glue. The patient tolerated the procedure well with no complications. A shoulder immobilizer was applied to the left arm. The patient was transported to their post procedure room in stable condition. Implant(s): Implant Name: Pacemkr Acld P[employer] Nxt Easyview - [id number] Type: Inv. Item: Pacemkr Acld [employer] Nxt Easyview Serial No.: [id number] Reverse Unit Operator: [id number] Implant Name: Env Defib 3.3X2.9In Aigisrx Icd Tyrx Lg - [id number] Type: Inv. Item: Env Defib 3.3X2.9In Aigisrx Icd Tyrx Lg Serial No.: [id number] Reverse Unit Operator: [employer] Lot No.: [id number] Previously Implanted: RV lead: Sensing: >25 mV Threshold: 0.7@0.4 ms Impedance: 550 ohms RA lead: Sensin.0 mV Threshold: 0.4V @0.4 ms Impedance: 450 ohms Jada Connor MD CV ELECTROPHYSIOLOGY CUPID PROCS Final Result * (ABNORMAL) LIPOPROTEIN A (01/17/2025 3:11 AM CDT) [facility] Lipoprotein (a) 39(H) <=29 mg/dL 01/19/2025 12:33 PM CDT [employer] ([facility]) Comment: Performed By: [employer] [address] [place] [address] Fluid Power Mechanic: Chad Ferrer MD, PhD CLIA Number: [id number] Blood BLOOD SPECIMEN / Unknown Lab Venipuncture / Unknown 01/17/2025 3:11 AM CDT 01/17/2025 3:52 AM CDT Filiberto Marshall MD LAB - CHEMISTRY ORDERABLES Final Result [employer] [facility]) [address] [place] [address] * APOLIPOPROTEIN B (01/17/2025 3:11 AM CDT) [facility] Apolipoprotein B 37 <90 mg/dL 01/21/20 4:09 PM CDT [facility] ([facility]) Comment: Desirable < 90 Borderline High 90 - 99 High 100 - 130 Very High >130 ASCVD RISK THERAPEUTIC TARGET CATEGORY APO B (mg/dL) Very High Risk <80 (if extreme risk <70) High Risk <90 Moderate Risk <90 Blood BLOOD SPECIMEN / Unknown Lab Venipuncture / Unknown 01/17/2025 3:11 AM CDT 01/17/2025 3:52 AM CDT Narrative [facility] ([facility]) - 01/20/2025 4:09 PM CDT Performed at: 01 - [address] [id number] [employer] Sheet: Paige Ny MD, Phone: [phone] us Filiberto Marshall MD LAB - CHEMISTRY ORDERABLES Final Result [facility] ([facility]) [address] [place] [address] * CARDIAC PROCEDURE ORDER (01/17/2025) Only the most recent of3 resultswithin the time period is included. Narrative 01/17/2025 Ordered by an unspecified provider. us Scanned Document CARDIAC SERVICES ORDERABLES Fin al Result * CT Cardiac Angio Struct Morph (01/15/2025 10:35 AM CDT) Anatomical Region Laterality Modality Chest Computed Tomogra phy 01/15/2025 11:3 2 AM CDT Impressions 01/15/2025 1:54 PM CDT Impression: 1. No thrombi noted in the left atrial appendage. 2. Diffuse atherosclerotic plaque noted in the aorta with mild calcification. No ulcerated plaque or thrombi noted. 3. This study was not protocoled for coronary evaluation but atherosclerotic coronary artery disease is noted in all 3 vessels. > Interpreting Provider: Ed Le M.D. on 01/15/2025 1:54 PM Narrative 01/15/2025 1:54 PM CDT PROCEDURE: CT CARDIAC ANGIO STRUCT MORPH, DATE/TIME OF EXAM: 01/15/2025 10:35 AM, LOCATION [facility] INDICATION: I63.512: Acute ischemic left MCA stroke (HCC) I63.9: Facial droop due to acute stroke (HCC) R29.810: Facial droop due to acute stroke (HCC) H51.0: Sustained horizontal conjugate gaze deviation, contralateral type R47.01: Aphasia R29.810: Weakness on right side of face ADDITIONAL CLINICAL INFORMATION: Ordering Provider Reason For Exam: rule out aortic thrombus or LV thrombus bilateral cerebral thrombosis COMPARISON: None. Procedure: Computed tomographic angiography, heart and coronary arteries with intravenous contrast material, including 3D image post-processing (including evaluation of cardiac structure and morphology, assessment of cardiac function, and evaluation of venous structures, if performed) (CPT code: 71615). Acquisition mode: Retrospective ECG gated. 60 seconds delayed scan was performed to evaluate the left atrial appendage. Contrast type and volume:Isovue .86 mL. Medication used: none Complications: None.. Image quality: Good signal noise. No significant artifacts. Heart rate: 75 bpm. Coronaries: This study was not protocoled for coronary evaluation but atherosclerotic coronary artery disease is noted in all 3 vessels. Other cardiac findings: Left Atrium: No left atrial appendage filling defects. Left Ventricle: The ventricular cavity size is within normal limits. There is no stigmata of prior infarction. There is no abnormal filling defects. Device leads are noted in the right ventricle. Pulmonary arteries: Normal caliber without proximal filling defects. Main pulmonary artery diameter 2.2 cm. Pulmonary veins: Normal pulmonary venous drainage. There were four noted pulmonary veins, two on the right and two on the left. Pericardium: Normal thickness with no significant effusion or calcium present. Cardiac valves: There is no thickening or calcification in the aortic or mitral valves. Ascending aorta diameter (4 m above the aortic annulus) 3.1 cm. Descending aorta diameter (at the level of the anu) 2.1 cm. Diffuse atherosclerotic plaque noted in the aorta with mild calcification. No evidence of ulcerated plaque or thrombi on this study. Extra cardiac findings: Chest: No significant findings in the available limited view of lungs and mediastinal structures. Upper abdomen: No significant findings in the available limited view of the abdomen. Procedure Note Ed Le MD - 01/15/2025 PROCEDURE: CT CARDIAC ANGIO STRUCT MORPH, DATE/TIME OF EXAM: 01/15/2025 10:35 AM, LOCATION [facility] INDICATION: I63.512: Acute ischemic left MCA stroke (HCC) I63.9: Facial droop due to acute stroke (HCC) R29.810: Facial droop due to acute stroke (HCC) H51.0: Sustained horizontal conjugate gaze deviation, contralateral type R47.01: Aphasia R29.810: Weakness on right side of face ADDITIONAL CLINICAL INFORMATION: Ordering Provider Reason For Exam: rule out aortic thrombus or LVthrombus bilateral cerebral thrombosis COMPARISON: None. Procedure: Computed tomographic angiography, heart and coronary arteries with intravenous contrast material, including 3D image post-processing (including evaluation of cardiac structure and morphology, assessment of cardiac function, and evaluation of venous structures, if performed)(CPT code: 89721). Acquisition mode: Retrospective ECG gated. 60 seconds delayed scan was performed to evaluate the left atrial appendage. Contrast type and volume:Isovue .86 mL. Medication used: none Complications: None.. Image quality: Good signal noise. No significant artifacts. Heart rate: 75 bpm. Coronaries: This study was not protocoled for coronary evaluation butatherosclerotic coronary artery disease is noted in all 3 vessels. Other cardiac findings: Left Atrium: No left atrial appendage filling defects. Left Ventricle: The ventricular cavity size is within normal limits. There is no stigmata of prior infarction. There is no abnormal filling defects. Device leads are noted in the right ventricle. Pulmonary arteries: Normal caliber without proximal filling defects.Main pulmonary artery diameter 2.2 cm. Pulmonary veins: Normal pulmonary venous drainage. There were four noted pulmonary veins, two on the right and two on the left. Pericardium: Normal thickness with no significant effusion or calcium present. Cardiac valves: There is no thickening or calcification in the aortic or mitral valves. Ascending aorta diameter (4 m above the aortic annulus) 3.1 cm. Descending aorta diameter (at the level of the anu) 2.1 cm. Diffuse atherosclerotic plaque noted in the aorta with mild calcification. No evidence of ulcerated plaque or thrombi on this study. Extra cardiac findings: Chest: No significant findings in the available limited view of lungsand mediastinal structures. Upper abdomen: No significant findings in the available limited view ofthe abdomen. Impression: 1. No thrombi noted in the left atrial appendage. 2. Diffuse atherosclerotic plaque noted in the aorta with mild calcification. No ulcerated plaque or thrombi noted. 3. This study was not protocoled for coronary evaluation but atherosclerotic coronary artery disease is noted in all 3 vessels. > Interpreting Provider: Ed Le M.D. 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 No intra-abdominal sequelae or bowel hyperenhancement/dilation that would suggest acute on chronic mesenteric ischemia. 2.Proximal occlusion of the right internal iliac artery with distal reconstitution. 3.Multifocal stenoses of the abdominal aorta branch vasculature as detailed above. 4.Ulcerative plaque is seen within the left common iliac artery. No evidence of dissection, aneurysm, AV fistula at the right common femoral arterial access site. 5.No evidence of RP hematoma as clinically queried. 6.There is a 2.9 x 1.5 cm lytic lesion with a thickened sclerotic border and narrow zone of transition within the inferior pubic ramus on the right with an overall nonaggressive appearance. This may represent an enchondroma versus other benign bony lesion. > Dictated by Bernabe Xiao DO (resident services supervisor). I, Kiah Rocha MD have personally reviewed and interpreted this examination/study. > Interpreting Provider: Kiah Rocha MD on 01/14/2025 3:25 PM Narrative 01/14/2025 3:25 PM CDT PROCEDURE: CT ANGIO ABDOMEN PELVIS, DATE/TIME OF EXAM: 01/14/2025 2:24 PM, LOCATION [facility] INDICATION: R10.30: Lower abdominal pain ADDITIONAL CLINICAL INFORMATION: Ordering Provider Reason For Exam: retroperitoneal hematoma . COMPARISON: None. TECHNIQUE: CT of the abdomen and pelvis was performed prior to and following the uneventful administration of 100 mL of Isovue 370 intravenous contrast according to an angiographic protocol. Three dimensional postprocessing was performed by the technologist and sent to the workstation for review. Findings: Abdominal aorta: There is no aortic dissection, intramural hematoma, penetrating atherosclerotic ulcer, or aneurysm. The aorta is normal in course and caliber. The aorta is moderately atherosclerotic with calcified and noncalcified atherosclerotic plaque. Abdominal aortic branches: Celiac axis: Proximal celiac artery shows severe stenosis/occlusion with reconstitution just after the takeoff. The celiac branches appear patent including the splenic artery and the proper hepatic artery. Superior mesenteric artery: Proximal SMA occlusion is seen. The SMA reconstitutes within the mid vessel via several collaterals likely arising from the KATRINA. Inferior mesenteric artery: Enlargement of the KATRINA is seen with moderate takeoff stenosis. The KATRINA likely supplies significant collaterals to the vascular distributions of the celiac artery and the SMA likely indicating that the celiac and SMA stenoses are chronic. Right renal artery: Atherosclerotic but patent without significant focal stenosis. Left renal artery: Atherosclerotic but patent without significant focal stenosis. Right common iliac artery: Atherosclerotic with mild multifocal stenoses. Right external iliac artery: Atherosclerotic with mild multifocal stenoses. Right internal iliac artery: Occluded proximally with reconstitution within the mid vessel. Left common iliac artery: Atherosclerotic with moderate multifocal stenoses. Within the mid vessel there is an ulcerated plaque (series 9 image 491). Left external iliac artery: Atherosclerotic with mild multifocal stenoses. Left internal iliac artery: Atherosclerotic with moderate multifocal stenoses. Right common femoral artery: No evidence of early vein opacification or focal outpouching of the right common femoral artery where the vessel was accessed to suggest pseudoaneurysm or AV fistula. Lower Chest: Normal. Liver: Normal. Gallbladder and Bile Ducts: Normal. Spleen: Normal. Pancreas: Normal. Adrenals: Normal. Kidneys: Normal. Gastrointestinal: The stomach and visualized loops of large and small bowel are unremarkable. The appendix is not seen; however, no inflammatory changes are seen in the right lower quadrant. Mesentery/Peritoneum/Retroperitoneum: No free intraperitoneal air. No free fluid in the abdomen or pelvis. No retroperitoneal hematoma as clinically queried. Bladder: Contrast opacified, but normal. Reproductive Organs: The prostate is normal, but borderline enlarged. Bones: There is a 2.9 x 1.5 cm lytic lesion with a thickened sclerotic border within the inferior pubic ramus on the right which may represent an enchondroma. This lesion appears to have a narrow zone of transition is likely nonaggressive. The visible osseous structures are intact. Degenerative changes are seen in the spine. Soft tissues: Mild stranding overlying the bilateral lower rectus muscles. This is nonspecific. Procedure Note Poovathumkadavil, Abduljaleel, MD - 01/14/2025 PROCEDURE: CT ANGIO ABDOMEN PELVIS, DATE/TIME OF EXAM: 01/14/2025 2:24PM, LOCATION [facility] INDICATION: R10.30: Lower abdominal pain ADDITIONAL CLINICAL INFORMATION: Ordering Provider Reason For Exam: retroperitoneal hematoma . COMPARISON: None. TECHNIQUE: CT of the abdomen and pelvis was performed prior to and following the uneventful administration of 100 mL of Isovue 370intravenous contrast according to an angiographic protocol. Three dimensional postprocessing was performed by the technologist and sent to the workstation for review. Findings: Abdominal aorta: There is no aortic dissection, intramural hematoma, penetrating atherosclerotic ulcer, or aneurysm. The aorta is normal in course and caliber. The aorta is moderately atherosclerotic withcalcified and noncalcified atherosclerotic plaque. Abdominal aortic branches: Celiac axis: Proximal celiac artery shows severe stenosis/occlusion with reconstitution just after the takeoff. The celiac branches appear patent including the splenic artery and the proper hepatic artery. Superior mesenteric artery: Proximal SMA occlusion is seen. The SMA reconstitutes within the mid vessel via several collaterals likelyarising from the KATRINA. Inferior mesenteric artery: Enlargement of the KATRINA is seen with moderate takeoff stenosis. The KATRINA likely supplies significant collaterals to the vascular distributions of the celiac artery and the SMA likelyindicating that the celiac and SMA stenoses are chronic. Right renal artery: Atherosclerotic but patent without significant focal stenosis. Left renal artery: Atherosclerotic but patent without significant focal stenosis. Right common iliac artery: Atherosclerotic with mild multifocalstenoses. Right external iliac artery: Atherosclerotic with mild multifocalstenoses. Right internal iliac artery: Occluded proximally with reconstitutionwithin the mid vessel. Left common iliac artery: Atherosclerotic with moderate multifocal stenoses. Within the mid vessel there is an ulcerated plaque (series 9 image 491). Left external iliac artery: Atherosclerotic with mild multifocalstenoses. Left internal iliac artery: Atherosclerotic with moderate multifocal stenoses. Right common femoral artery: No evidence of early vein opacification or focal outpouching of the right common femoral artery where the vesselwas accessed to suggest pseudoaneurysm or AV fistula. Lower Chest: Normal. Liver: Normal. Gallbladder and Bile Ducts: Normal. Spleen: Normal. Pancreas: Normal. Adrenals: Normal. Kidneys: Normal. Gastrointestinal: The stomach and visualized loops of large and small bowel areunremarkable. The appendix is not seen; however, no inflammatory changes are seen inthe right lower quadrant. Mesentery/Peritoneum/Retroperitoneum: No free intraperitoneal air. No free fluid in the abdomen or pelvis. No retroperitoneal hematoma as clinically queried. Bladder: Contrast opacified, but normal. Reproductive Organs: The prostate is normal, but borderline enlarged. Bones: There is a 2.9 x 1.5 cm lytic lesion with a thickened sclerotic border within the inferior pubic ramus on the right which may represent an enchondroma. This lesion appears to have a narrow zone of transition is likely nonaggressive. The visible osseous structures are intact. Degenerative changes are seen in the spine. Soft tissues: Mild stranding overlying the bilateral lower rectus muscles. This is nonspecific. 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 No intra-abdominal sequelae or bowel hyperenhancement/dilation that would suggest acute on chronic mesenteric ischemia. 2.Proximal occlusion of the right internal iliac artery with distal reconstitution. 3.Multifocal stenoses of the abdominal aorta branch vasculature asdetailed above. 4.Ulcerative plaque is seen within the left common iliac artery. No evidence of dissection, aneurysm, AV fistula at the right common femoral arterial access site. 5.No evidence of RP hematoma as clinically queried. 6.There is a 2.9 x 1.5 cm lytic lesion with a thickened sclerotic border and narrow zone of transition within the inferior pubic ramus on theright with an overall nonaggressive appearance. This may represent anenchondroma versus other benign bony lesion. > Dictated by Bernabe Xiao DO (resident services supervisor). I, Kiah Rocha MD have personally reviewed and interpreted this examination/study. > Interpreting Provider: Kiah Rocha MD on 53:25 PM us Filiberto Marshall MD CT ORDERABLES Final Resul t * (ABNORMAL) GLUCOSE - POINT OF CARE (01/14/2025 10:16 AM CDT) Only the most recent of7 resultswithin the time period is included. Glucose WB/POC 136(H) 70 - 99 mg/dL 01/14/2025 10:20 AM CDT [facility] Specimen Type Arterial/C apillary 01/14/2025 10:20 AM CDT [facility] Blood BLOOD SPECIMEN / Unknown 01/14/2025 10:16 AM CDT 01/14/2025 10:20 AM CDT us Filiberto Marshall MD LAB - POINT OF CARE ORDERAB LES Final Result [facility] [address] [place] [address], [facility] [phone] * IR Carotid or Vertebral Stent (01/14/2025 10:07 AM CDT) Anatomical Region Laterality Modality Head X-Ray Angiograph y 01/14/2025 11:0 9 AM CDT Impressions 01/15/2025 9:21 AM CDT Impression: 1. Severe flow-limiting stenosis of the left internal carotid artery at the carotid bulb. 2. Successful stent-assisted angioplasty of a left cervical segment carotid artery stenosis. 3. Occlusion of the left external carotid artery. 4. Immediate improvement in intracerebral flow via left IAN. I, Dr. Filiberto Marshall, was present and performed/supervised the entire procedure. I, Filiberto Marshall MD have personally reviewed and interpreted this examination/study. > Interpreting Provider: Filiberto Marshall MD on 01/15/2025 9:21 AM Narrative 01/15/2025 9:21 AM CDT PROCEDURE: Left Cervical Carotid Angioplasty and Stent Placement. DATE/TIME OF EXAM: 01/14/2025 08:00 AM Comparison Study: CTA Brain and Neck dated 01/06 History: The patient is a 59 year old right handed man who presented with dysphasia and right arm weakness. CTA of neck showed a severe stenosis at the origin of LICA. Plan is for left ICA endovascular revascularization with angioplasty and stenting. Environmental Laboratory Technician: Dr. Josselyn Marshall Plant Scientist(s): Anderson Lo Vessels: Ultrasound Guided Access of Right Femoral Artery Left Common Carotid Artery Angiogram: Cervical and Cerebral. Pre stenting Angioplasty with Aviator Rapid Exchange Balloon Deployment of Spider RX filter within the Petrous Carotid Segment Self-expanding Xact Stent Deployment within Cervical Internal Carotid Artery Angioplasty with Aviator Rapid Exchange Balloon Angiography Through the Existing Catheter Right Femoral Artery Angiogram Anesthesia: General anesthesia was performed under the guidance of attending Anesthesiologist and his food and beverage assistant. Procedural Detail: I, Dr. Josselyn Marshall, was present for the entire duration of the procedure. The risks, benefits, and alternatives to procedure were discussed in detail with the patient and his family. These included but were not limited to the risk of blood loss, vessel injury, stroke, renal injury, and contrast allergy. The patient was brought to the biplane angiography suite where he underwent prep and drape procedures. Limited ultrasound of the common femoral artery demonstrated a patent vessel. The take off of the profunda and other arteries were identified. A escalante scale image was documented. The right common femoral artery was accessed using a micropuncture needle. The needle entry was documented. Following a series of exchanges a 6 F sheath was placed, through the sheath a 6 Yoruba Cook Shuttle and a 5F PenumbDely select rhodes 1 catheter were navigated into the aortic arch. The 6 Yoruba Cook Shuttle was exchanged for a 7 F Cook Shuttle. The catheter was used to select the left common carotid artery and a cervical and cerebral angiogram were obtained. The diagnostic catheter was removed from the arterial.Through this catheter a Synchro 14 microwire was inserted and used to cross the stenosis and positioned at the petrous carotid segment. Over this wire an Aviator Balloon Size 2.5 x 12 mm was positioned across the stenosis and inflated to nominal pressure. The balloon was removed and then over the microwire an Spider RX filter was navigated and deployed at the cervico-petrous junction. The Transcend wire was then removed. Over the filter wire a Xact self-expanding stent 6x30 mm was positioned and deployed across the stenosis. Over the wire an Aviator Balloon Size 5 x 20 mm was positioned inside the stent ans across the stenosis and inflated to nominal pressure. The balloon was removed, then filter was recaptured, and an angiogram through the existing catheter was then performed. The right femoral artery angiogram was obtained through the sheath. All catheters and sheaths were removed from the arterial system. Hemostasis was achieved using a 8 Yoruba Angio-Seal closure device. Hemostasis was immediate at the end of the closure procedure. The right dorsalis pedis pulse was palpable at the end of the closure procedure. The patient tolerated the procedure without immediate complications. He was returned to the recovery area in hemodynamically stable condition and neurologically unchanged. The estimated blood loss was less than 20 mL. A total of 14.0 minutes of fluoroscopic time and 60 ml of Isovue-300 contrast were utilized for the study. Findings: Pre- revascularization: The left common carotid artery cervical angiogram reveals some distal tortuosity of common carotid artery suggestive of atherosclerosis, there is a severe flow limiting stenosis at the origin of the cervical segment of the internal carotid artery. The visualized branches of the external carotid artery are normal in course and caliber. The internal carotid artery cerebral angiogram reveals an irregular wall extending from lacerum segment to communicating segment suggestive of atherosclerosis causing a non flow limiting stenosis. The middle cerebral artery shows a recanalization that was not seen in previous ct angiography. There is not visualization of the anterior cerebral artery. The venous phase shows a normal venous drainage. Post- revascularization: The left common carotid artery cervical angiogram reveals a stent deployed from distal common carotid artery to proximal cervical ICA, there is resolution of severe flow limiting stenosis at the origin of the cervical segment of ICA. There is an occlusion of the left external carotid artery with visualization of anterograde contrast in its proximal segment. The internal carotid artery cerebral angiogram reveals contrast flowing through the previously non visualized left anterior cerebral artery with even collateral flow through the anterior communicating artery to contralateral IAN. The right femoral artery angiogram reveals a puncture site above the femoral bifurcation. Procedure Note Filiberto Marshall MD - 01/15/2025 PROCEDURE: Left Cervical Carotid Angioplasty and Stent Placement. DATE/TIME OF EXAM: 01/14/2025 08:00 AM Comparison Study: CTA Brain and Neck dated 01/06 History: The patient is a 59 year old right handed man who presentedwith dysphasia and right arm weakness. CTA of neck showed a severe stenosisat the origin of LICA. Plan is for left ICA endovascular revascularization with angioplasty and stenting. Environmental Laboratory Technician: Dr. Josselyn Marshall Plant Scientist(s): Anderson Lo Vessels: Ultrasound Guided Access of Right Femoral Artery Left Common Carotid Artery Angiogram: Cervical and Cerebral. Pre stenting Angioplasty with Aviator Rapid Exchange Balloon Deployment of Spider RX filter within the Petrous Carotid Segment Self-expanding Xact Stent Deployment within Cervical Internal Carotid Artery Angioplasty with Aviator Rapid Exchange Balloon Angiography Through the Existing Catheter Right Femoral Artery Angiogram Anesthesia: General anesthesia was performed under the guidance of attending Anesthesiologist and his food and beverage assistant. Procedural Detail: I, Dr. Josselyn Marshall, was present for the entire durationof the procedure. The risks, benefits, and alternatives to procedure were discussed in detail with the patient and his family. These included but were not limited to the risk of blood loss, vessel injury, stroke, renal injury, and contrast allergy. The patient was brought to the biplane angiography suite where he underwent prep and drape procedures. Limited ultrasound of the common femoral artery demonstrated a patent vessel.The take off of the profunda and other arteries were identified. A grayscale image was documented. The right common femoral artery was accessed usinga micropuncture needle. The needle entry was documented. Following aseries of exchanges a 6 F sheath was placed, through the sheath a 6 FrenchCook Shuttle and a 5F Penumbra select rhodes 1 catheter were navigated into the aortic arch. The 6 Yoruba Cook Shuttle was exchanged for a 7 F Cook Shuttle. The catheter was used to select the left common carotid artery and a cervical and cerebral angiogram were obtained. The diagnostic catheter was removed from the arterial.Through thiscatheter a Synchro 14 microwire was inserted and used to cross the stenosis and positioned at the petrous carotid segment. Over this wire an Aviator Balloon Size 2.5 x 12 mm was positioned across the stenosis and inflatedto nominal pressure. The balloon was removed and then over the microwire an Spider RX filter was navigated and deployed at the cervico-petrous junction. The Transcend wire was then removed. Over the filter wire aXact self-expanding stent 6x30 mm was positioned and deployed across the stenosis. Over the wire an Aviator Balloon Size 5 x 20 mm was positioned inside the stent ans across the stenosis and inflated to nominalpressure. The balloon was removed, then filter was recaptured, and an angiogram through the existing catheter was then performed. The right femoral artery angiogram was obtained through the sheath. All catheters and sheaths were removed from the arterial system. Hemostasiswas achieved using a 8 Yoruba Angio-Seal closure device. Hemostasis was immediate at the end of the closure procedure. The right dorsalis pedis pulse was palpable at the end of the closure procedure. The patient tolerated the procedure without immediate complications. He was returned to the recovery area in hemodynamically stable conditionand neurologically unchanged. The estimated blood loss was less than 20 mL. A total of 14.0 minutes of fluoroscopic time and 60 ml of Isovue-300 contrast were utilized for the study. Findings: Pre- revascularization: The left common carotid artery cervicalangiogram reveals some distal tortuosity of common carotid artery suggestive of atherosclerosis, there is a severe flow limiting stenosis at the originof the cervical segment of the internal carotid artery. The visualized branches of the external carotid artery are normal in course andcaliber. The internal carotid artery cerebral angiogram reveals an irregular wall extending from lacerum segment to communicating segment suggestive of atherosclerosis causing a non flow limiting stenosis. The middlecerebral artery shows a recanalization that was not seen in previous ctangiography. There is not visualization of the anterior cerebral artery. The venous phase shows a normal venous drainage. Post- revascularization: The left common carotid artery cervicalangiogram reveals a stent deployed from distal common carotid artery to proximal cervical ICA, there is resolution of severe flow limiting stenosis atthe origin of the cervical segment of ICA. There is an occlusion of the left external carotid artery with visualization of anterograde contrast inits proximal segment. The internal carotid artery cerebral angiogram reveals contrast flowing through the previously non visualized left anterior cerebral artery with even collateral flow through the anterior communicating artery to contralateral IAN. The right femoral artery angiogram reveals a puncture site above the femoral bifurcation. Impression: 1. Severe flow-limiting stenosis of the left internal carotid artery atthe carotid bulb. 2. Successful stent-assisted angioplasty of a left cervical segmentcarotid artery stenosis. 3. Occlusion of the left external carotid artery. 4. Immediate improvement in intracerebral flow via left IAN. I, Dr. Filiberto Marshall, was present and performed/supervised theentire procedure. IFiliberto MD have personally reviewed and interpreted this examination/study. > Interpreting Provider: Filiberto Marshall MD on 01/15/2025 9:21 AM us Damaris Schmidt MD IR ORDERABLES Final Result * ACT LR - POCT ([facility]) (01/14/2025 9:00 AM CDT) Pathologist [facility] ACT LR 293 See result comments sec 01/21/2025 7:30 AM CDT [facility] Blood BLOOD SPECIMEN / Unknown 01/14/2025 9:00 AM CDT 01/21/2025 7:30 AM CDT Narrative [facility] - 01/21/2025 7:30 AM CDT ACT-LR Therapeutics ranges are: Cardiac environmental laboratory technician = 200-300 seconds Sheath pull = ACT less than 170 seconds EPS lab = 200-240 seconds Sheath pull = ACT less than 140 seconds Radiology : CT/Angio lab = 200-300 seconds Sheath pull = ACT less than 200 seconds Expected range of normal volunteers: ACT-LR = 113-149 seconds Expected range of a Non-heparin patients: ACT-LR = 89-169 seconds From established ranges from the company manual us Filiberto Marshall MD LAB - COAGULATION ORDERABLE S Final Result [facility] [address] [place] [address], [facility] [phone] * ETT LINE PERFORMABLE (01/14/2025 8:29 AM CDT) Narrative Jonathan Gamboa CAA - 01/14/2025 8:29 AM CDT Jonathan Gamboa CAA 01/14/2025 8:30 AM Endotracheal Tube Placement: Patient Location: OR. Intubation Event Date/Time: 01/14/2025 8:10 AM Procedure: intubation ([id number]) Procedure Section: Sedation: under general anesthesia. Indications for Airway Management: anesthesia Procedure pretreatments used? No Induction: standard IV Patient Position: sniffing and supine Mask Ventilation: easy. Blade Type: Mix Blade Size: 2 Laryngoscopy View: grade 1 (full cords) Intubation Adjuncts: stylet Tube: endotracheal tube Placement: oral Tube type: cuff - inflated Tube Size (MM): 8 Depth of Insertion (CM): 23 Measured From: teeth Cuff volume (mL): 10 Cuff Inflated With: air Number of Attempts: 1. Placement Verified By: direct visualization, bilateral breath sounds, chest auscultation and CO2 detector CXR Findings: ETT in proper place. Tube secured with: adhesive tape and ETT swenson. Dentition unchanged? Yes Difficult Airway? No. Procedure Start Time: 01/14/2025 8:10 AM. Procedure End Time: 01/14/2025 8:10 AM. Procedure Total Time: 0 minutes. Staff Section Anesthesia Provider: Jonathan Gamboa CAA, Performed the procedure Yancy Munroe MD GENERAL ANESTHESIA ORDERABL ES Final Result * IV PLACEMENT PERFORMABLE (01/14/2025 8:19 AM CDT) Narrative Jonathan Gamboa CAA - 01/14/2025 8:19 AM CDT Jonathan Gamboa CAA 01/14/2025 8:20 AM Peripheral IV Line Placement: Patient Location: OR Insertion Time: 01/14/2025 8:13 AM Procedure: IV start ([id number]) Procedure Section: Skin Prep: alcohol. Orientation: left Location: forearm Local Anesthetic Used? No Brand Name: castillo. Catheter Gauge: 20 Catheter Length (in): 1.25 Number of Attempts: 1. Procedure Tolerance: tolerated well. Procedure Start Time: 01/14/2025 8:13 AM. Procedure End Time: 01/14/2025 8:13 AM. Procedure Total Time: 0 minutes. Staff Section Anesthesia Provider: Yancy Munroe MD, Performed the procedure Yancy Munroe MD GENERAL ANESTHESIA ORDERABL ES Final Result * EKG 12-Lead (01/09/2025 5:11 PM CDT) Pathologist [facility] Ventricular Rate 76 BPM [facility] MUSE Atrial Rate 76 BPM [facility] MUSE P-R Interval 152 ms [facility] MUSE QRS Duration ms 82 ms [facility] MUSE Q-T Interval ms 378 ms [facility] MUSE QTC Calculation (Bezet) 425 ms [facility] MUSE Calculated P [place] 15 degrees SL MUSE Calculated R [place] 82 degrees [facility] MUSE Calculated T [place] 77 degrees [facility] MUSE Interpretation EKG Atrial-paced rhythm ABNORMAL ECG NO PREVIOUS ECGS AVAILABLE Confirmed by EMILY MARTINI MD ([id number]) on 01/12/2025 4:01:30 PM [facility] MUSE 01/09/2025 5:11 PM CDT 01/12/2025 4:01 PM CDT Damaris Schmidt MD ECG ORDERABLES Edited Resul t - Final [facility] MUSE * ECHO COMPLETE W CONTRAST W BUBBLE STUDY (01/09/2025 4:32 PM CDT) AV area index 1.936 cm /m [facility] CV FUJI PACS LA vol index 0.025 l/m [facility] CV FUJI PACS Dimensionless Index 0.96 unitless [facility] CV FUJI PACS Myocardial strain charge 2 unitless [facility] CV FU[facility]I PACS IVSd 2D 0.936 cm SSM CV FUJ I PACS LVIDd 4.466 cm [facility]SM CV FU[facility] I PACS LVIDs 3.027 cm [facility]SM CV FU[facility] I PACS LVOT diam 2.041 cm SSM CV [facility] I PACS LVPWd 1.027 cm SSM CV [facility] I PACS LV biplane EF 60.863 % [facility] CV FUJI PACS LV A2C EF 62.153 % [facility]SM CV [facility] I PACS LV A4C EF 60.617 % SSM CV [facility] I PACS LV EDV A2C 80.381 ml SSM CV FU JI PACS LV EDV A4C 86.706 ml SSM CV FU JI PACS LV ESV A2C 30.421 ml SSM CV FU JI PACS LV ESV A4C 34.147 ml [facility]SM CV FU JI PACS LVOT pk grad 3.024 mmHg SSM CV FUJI PACS LVOT pk marcel 86.942 cm/s SSM CV F UJI PACS LVOT VTI 16.886 cm SSM CV [facility] I PACS RV-angela basal diam 3.802 [facility] RVOT pk marcel 59.63 cm/s SSM CV F UJI PACS RVOT VTI 10.293 cm SSM CV [facility] I PACS LA size 3.462 cm SSM CV [facility] I PACS LA vol BP 41.174 ml SSM CV [facility] I PACS RA area 12.93 cm SSM CV FUJI PACS AV area pk marcel 2.896 cm SSM CV FUJI PACS AV area cont VTI 3.144 cm SSM CV FUJI PACS AV pk grad 3.863 mmHg SSM CV FU JI PACS AV mn grad 1.736 mmHg SSM CV FU JI PACS AV pk marcel 98.274 cm/s SSM CV FUJ I PACS AV VTI 17.581 cm SSM CV FUJ I PACS MV A pk marcel 53.647 cm/s SSM CV F UJI PACS MV E pk marcel 77.378 cm/s SSM CV F UJI PACS MV E' lateral marcel 9.856 cm/s SS M CV FUJI PACS MV mn grad 1.415 mmHg SSM CV FU JI PACS MV VTI 20.971 cm SSM CV FUJ I PACS PV pk marcel 80.108 cm/s SSM CV FUJ I PACS PV VTI 12.91 cm SSM CV FUJ I PACS TAPSE 1.784 cm SSM CV FUJ I PACS TR pk marcel 233.432 cm/s SSM CV FUJ I PACS Anatomical Region Laterality Modality Ultrasound 01/09/2025 3:50 PM CDT Narrative 01/10/2025 1:02 PM CDT Summary * The left ventricle is normal in size, with normal systolic function and an estimated ejection fraction of 61 % by biplane method of disks. Left ventricular wall motion is normal. * The left ventricular diastolic function is normal. * Right ventricle is normal in size with normal systolic function. * Agitated saline contrast study at rest and with Valsalva is negative for a shunt. * No significant valvular abnormalities. Patient Info Name: Martín Marin Age: 59 years : 1965 Gender: Male Ht: 67 in Wt: 124 lb BSA: 1.62 m2 HR: 75 bpm BP: 117 / 73 mmHg Exam Date: 01/09/2025 3:50 PM Patient Status: I/P Study Site: [facility] Primary Location: [facility] EStudy Info Technical Quality: Adequate Exam Type: ECHO COMPLETE W CONTRAST W BUBBLE STUDY Indications R29.898 - RUE weakness I63.512 - Acute ischemic left MCA stroke (HCC) Procedure(s) * A complete 2D, color Doppler, spectral Doppler, and M-Mode transthoracic echocardiogram was performed. * An Ultrasound Enhancing Agent (UEA) was utilized to enhance endocardial definition, opacify the left ventricle and further assess left ventricular function and wall motion. Contrast/Agitated Saline Contrast / Saline: Definity Amount: 1.50 ml Reaction to Contrast: no Contrast / Saline: Agitated Saline Amount: 10.00 ml Reaction to Contrast: no Staff Referring Physician: Haider Ellison Ordering Provider: Haider Ellison Attending Physician: Haider Ellison Fellow: Luis A Irwin Machinery Cleaner: Espinoza Cruz Left Ventricle The left ventricular mass is normal with concentric remodeling. The left ventricle is normal in size. Left ventricular segmental wall motion is normal. Left ventricular systolic function is normal with an estimated ejection fraction of 61 % by biplane method of disks. The left ventricular diastolic function is normal. Right Ventricle The right ventricle is normal in size. Right ventricular systolic function is normal. Left Atrium The left atrium is normal in size with a left atrial volume index of 25 ml/m2 by BP MOD. Right Atrium The right atrium is normal in size. Atrial Septum Intact interatrial septum visualized by 2D and color Doppler imaging. Agitated saline contrast study at rest and with Valsalva is negative for a shunt. Aortic Valve The aortic valve is trileaflet. There is no aortic valve stenosis. There is no aortic valve regurgitation. Pulmonic Valve The pulmonic valve is not well visualized, but grossly normal. There is no pulmonic valve stenosis. There is no pulmonic regurgitation. Mitral Valve The mitral valve is normal. There is no mitral valve stenosis. There is no mitral valve regurgitation. Tricuspid Valve The tricuspid valve is normal. There is mild tricuspid valve regurgitation. The pulmonary artery systolic pressure is normal, 30 mmHg. There is no tricuspid valve stenosis. Inferior Vena Cava The inferior vena cava is normal in size (< 2.1 cm). There is < 50% collapse of the IVC upon inspiration with an estimated right atrial pressure of 8 mmHg. Pericardium/Pleural There is no pericardial effusion. Aorta The aortic root at the sinus of Valsalva is normal in size. The ascending aorta is normal in size. Measurements Left Ventricular Outflow Tract Name Value Normal LVOT 2D LVOT Diameter 2.0 cm LVOT Area 3.3 cm2 LVOT Doppler LVOT Peak Velocity 0.9 m/s LVOT Peak Gradient 3 mmHg LVOT Mean Velocity 55.29 cm/s LVOT Mean Gradient 1 mmHg LVOT VTI 16.9 cm LVOT VTI/AV VTI Ratio 1.0 LVOT Stroke Volume 55 ml LVOT Stroke Volume Index 34 ml/m2 35-58 LVOT CO 4.1 l/min LVOT CI 2.6 l/min/m2 Pulmonic Valve Name Value Normal RVOT Doppler RVOT Peak Velocity 0.6 m/s RVOT Peak Gradient 1 mmHg RVOT Mean Gradient 1 mmHg PV Doppler PV Peak Velocity 0.8 m/s PV Peak Gradient 3 mmHg PV Mean Gradient 1 mmHg Mitral Valve Name Value Normal MV Doppler MV Peak Gradient 3 mmHg MV Mean Gradient 1 mmHg MV DI (VTI) 1.24 MV PHT 55 ms MV Area (PHT) 4.03 cm2 4.00-5.00 MV Area (Cont Eq VTI) 2.63 cm2 MV Diastolic Function MV E Peak Velocity 0.8 m/sec MV A Peak Velocity 0.5 m/sec MV E/A 1.4 MV Decel Time (PW) 188 ms MV Annular TDI MV Septal e' Velocity 7 cm/s >=8 MV E/e' (Septal) 11 <=8 MV Lateral e' Velocity 10 cm/s >=10 MV E/e' (Lateral) 8 <=8 MV e' Average 9 cm/s MV E/e' (Average) 9 Tricuspid Valve Name Value Normal TV Regurgitation Doppler TR Peak Velocity 2.3 m/s TR Peak Gradient 22 mmHg TR Vena Contracta 2.16 mm Estimated PAP/RSVP RA Pressure 8 mmHg <=5 PA Systolic Pressure 30 mmHg <35 RV Systolic Pressure 30 mmHg <36 TV Annular TDI TV Lateral Gertrude s' Velocity 12 cm/s 10-19 Aortic Valve Name Value Normal AV 2D/MM AV Cusp Sep (MM) 1.6 cm AV Doppler AV Peak Velocity 0.98 m/s AV Peak Gradient 4 mmHg AV Mean Gradient 2 mmHg AV VTI 18 cm AV Area (Cont Eq VTI) 3.14 cm2 >=2.00 AV Area (Cont Eq Marcel) 2.90 cm2 AV DI (VTI) 0.96 AV DI (Marcel) 0.88 AV Regurgitation 2D LVOT Area 3.27 cm2 Ventricles Name Value Normal LV Dimensions 2D/MM IVS Diastolic Thickness (2D) 0.9 cm 0.6-1.0 LVID Diastole (2D) 4.5 cm 4.2-5.8 LVPW Diastolic Thickness (2D) 1.0 cm 0.6-1.0 LVID Systole (2D) 3.0 cm 2.5-4.0 LV Mass (2D Cubed) 148 g 88-224 LV Mass Index (2D Cubed) 91 g/m2 49-115 Relative Wall Thickness (2D) 0.46 <=0.42 LV Fractional Shortening/Ejection Fraction 2D/MM LV Fractional Shortening (2D) 32 % 25-43 LV EF (2D Teicholz) 61 % 52-72 LV Diastolic Volume (4C MOD) 87 ml LV EF (4C MOD) 61 % LV Diastolic Volume (2C MOD) 80 ml LV EF (2C MOD) 62 % LV Diastolic Volume (BP MOD) 86 ml 62-150 LV Diastolic Volume Index (BP MOD) 53 ml/m2 34-74 LV Systolic Volume (BP MOD) 34 ml 21-61 LV Systolic Volume Index (BP MOD) 21 ml/m2 11-31 LV EF (BP MOD) 61 % 52-72 LV Diastolic Length (4C) 8.0 cm LV Systolic Length (4C) 5.8 cm LV Stroke Volume (4C MOD) 53 ml RV Dimensions 2D/MM RV Basal Diastolic Dimension 3.8 cm 2.5-4.1 TAPSE 1.8 cm >=1.7 Atria Name Value Normal LA Dimensions LA Dimension (2D) 3.5 cm 3.0-4.1 LA Dimen Index (2D) 2.1 cm/m2 LA Volume (BP MOD) 41 ml LA Volume Index (BP MOD) 25 ml/m2 16-34 RA Dimensions RA Area (4C) 13 cm2 <=18 RA Area (4C) Index 8 cm2/m2 Report Signatures Finalized by Chitra Gotti MD on 01/10/2025 01:02 PM Procedure Note Chitra Gotti MD - 01/10/2025 Summary * The left ventricle is normal in size, with normal systolic functionand an estimated ejection fraction of 61 % by biplane method of disks. Left ventricular wall motion is normal. * The left ventricular diastolic function is normal. * Right ventricle is normal in size with normal systolic function. * Agitated saline contrast study at rest and with Valsalva is negativefor a shunt. * No significant valvular abnormalities. Patient Info Name: Martín Marin Age: 59 years : 1965 Gender: Male Ht: 67 in Wt: 124 lb BSA: 1.62 m2 HR: 75 bpm BP: 117 / 73 mmHg Exam Date: 01/09/2025 3:50 PM Patient Status: I/P Study Site: [facility] Primary Location: [facility] EStudy Info Technical Quality: Adequate Exam Type: ECHO COMPLETE W CONTRAST W BUBBLE STUDY Indications R29.898 - RUE weakness I63.512 - Acute ischemic left MCA stroke (HCC) Procedure(s) * A complete 2D, color Doppler, spectral Doppler, and M-Modetransthoracic echocardiogram was performed. * An Ultrasound Enhancing Agent (UEA) was utilized to enhanceendocardial definition, opacify the left ventricle and further assess leftventricular function and wall motion. Contrast/Agitated Saline Contrast / Saline: Definity Amount: 1.50 ml Reaction to Contrast: no Contrast / Saline: Agitated Saline Amount: 10.00 ml Reaction to Contrast: no Staff Referring Physician: Haider Ellison Ordering Provider: Haider Ellison Attending Physician: Haider Ellison Fellow: Luis A Irwin Machinery Cleaner: Espinoza Cruz Left Ventricle The left ventricular mass is normal with concentric remodeling. Theleft ventricle is normal in size. Left ventricular segmental wall motion isnormal. Left ventricular systolic function is normal with an estimated ejection fraction of 61 % by biplane method of disks. The left ventriculardiastolic function is normal. Right Ventricle The right ventricle is normal in size. Right ventricular systolicfunction is normal. Left Atrium The left atrium is normal in size with a left atrial volume index of25 ml/m2 by BP MOD. Right Atrium The right atrium is normal in size. Atrial Septum Intact interatrial septum visualized by 2D and color Doppler imaging. Agitated saline contrast study at rest and with Valsalva is negative fora shunt. Aortic Valve The aortic valve is trileaflet. There is no aortic valve stenosis. Thereis no aortic valve regurgitation. Pulmonic Valve The pulmonic valve is not well visualized, but grossly normal. There isno pulmonic valve stenosis. There is no pulmonic regurgitation. Mitral Valve The mitral valve is normal. There is no mitral valve stenosis. There isno mitral valve regurgitation. Tricuspid Valve The tricuspid valve is normal. There is mild tricuspid valveregurgitation. The pulmonary artery systolic pressure is normal, 30 mmHg. There is no tricuspid valve stenosis. Inferior Vena Cava The inferior vena cava is normal in size (< 2.1 cm). There is < 50%collapse of the IVC upon inspiration with an estimated right atrial pressure of 8mmHg. Pericardium/Pleural There is no pericardial effusion. Aorta The aortic root at the sinus of Valsalva is normal in size. Theascending aorta is normal in size. Measurements Left Ventricular Outflow Tract Name Value Normal LVOT 2D LVOT Diameter 2.0 cm LVOT Area 3.3 cm2 LVOT Doppler LVOT Peak Velocity 0.9 m/s LVOT Peak Gradient 3 mmHg LVOT Mean Velocity 55.29 cm/s LVOT Mean Gradient 1 mmHg LVOT VTI 16.9 cm LVOT VTI/AV VTI Ratio 1.0 LVOT Stroke Volume 55 ml LVOT Stroke Volume Index 34 ml/m2 35-58 LVOT CO 4.1 l/min LVOT CI 2.6 l/min/m2 Pulmonic Valve Name Value Normal RVOT Doppler RVOT Peak Velocity 0.6 m/s RVOT Peak Gradient 1 mmHg RVOT Mean Gradient 1 mmHg PV Doppler PV Peak Velocity 0.8 m/s PV Peak Gradient 3 mmHg PV Mean Gradient 1 mmHg Mitral Valve Name Value Normal MV Doppler MV Peak Gradient 3 mmHg MV Mean Gradient 1 mmHg MV DI (VTI) 1.24 MV PHT 55 ms MV Area (PHT) 4.03 cm2 4.00-5.00 MV Area (Cont Eq VTI) 2.63 cm2 MV Diastolic Function MV E Peak Velocity 0.8 m/sec MV A Peak Velocity 0.5 m/sec MV E/A 1.4 MV Decel Time (PW) 188 ms MV Annular TDI MV Septal e' Velocity 7 cm/s >=8 MV E/e' (Septal) 11 <=8 MV Lateral e' Velocity 10 cm/s >=10 MV E/e' (Lateral) 8 <=8 MV e' Average 9 cm/s MV E/e' (Average) 9 Tricuspid Valve Name Value Normal TV Regurgitation Doppler TR Peak Velocity 2.3 m/s TR Peak Gradient 22 mmHg TR Vena Contracta 2.16 mm Estimated PAP/RSVP RA Pressure 8 mmHg <=5 PA Systolic Pressure 30 mmHg <35 RV Systolic Pressure 30 mmHg <36 TV Annular TDI TV Lateral Gertrude s' Velocity 12 cm/s 10-19 Aortic Valve Name Value Normal AV 2D/MM AV Cusp Sep (MM) 1.6 cm AV Doppler AV Peak Velocity 0.98 m/s AV Peak Gradient 4 mmHg AV Mean Gradient 2 mmHg AV VTI 18 cm AV Area (Cont Eq VTI) 3.14 cm2 >=2.00 AV Area (Cont Eq Marcel) 2.90 cm2 AV DI (VTI) 0.96 AV DI (Marcel) 0.88 AV Regurgitation 2D LVOT Area 3.27 cm2 Ventricles Name Value Normal LV Dimensions 2D/MM IVS Diastolic Thickness (2D) 0.9 cm 0.6-1.0 LVID Diastole (2D) 4.5 cm 4.2-5.8 LVPW Diastolic Thickness (2D) 1.0 cm 0.6-1.0 LVID Systole (2D) 3.0 cm 2.5-4.0 LV Mass (2D Cubed) 148 g 88-224 LV Mass Index (2D Cubed) 91 g/m2 49-115 Relative Wall Thickness (2D) 0.46 <=0.42 LV Fractional Shortening/Ejection Fraction 2D/MM LV Fractional Shortening (2D) 32 % 25-43 LV EF (2D Teicholz) 61 % 52-72 LV Diastolic Volume (4C MOD) 87 ml LV EF (4C MOD) 61 % LV Diastolic Volume (2C MOD) 80 ml LV EF (2C MOD) 62 % LV Diastolic Volume (BP MOD) 86 ml 62-150 LV Diastolic Volume Index (BP MOD) 53 ml/m2 34-74 LV Systolic Volume (BP MOD) 34 ml 21-61 LV Systolic Volume Index (BP MOD) 21 ml/m2 11-31 LV EF (BP MOD) 61 % 52-72 LV Diastolic Length (4C) 8.0 cm LV Systolic Length (4C) 5.8 cm LV Stroke Volume (4C MOD) 53 ml RV Dimensions 2D/MM RV Basal Diastolic Dimension 3.8 cm 2.5-4.1 TAPSE 1.8 cm >=1.7 Atria Name Value Normal LA Dimensions LA Dimension (2D) 3.5 cm 3.0-4.1 LA Dimen Index (2D) 2.1 cm/m2 LA Volume (BP MOD) 41 ml LA Volume Index (BP MOD) 25 ml/m2 16-34 RA Dimensions RA Area (4C) 13 cm2 <=18 RA Area (4C) Index 8 cm2/m2 Report Signatures Finalized by Chitra Gotti MD on 01/10/2025 01:02 PM us Haider Ellison MD ECHO CUPID Final Resul t * MRI Brain Wo Contrast (01/09/2025 1:12 PM CDT) Anatomical Region Laterality Modality Head Magnetic Resonan ce 01/09/2025 1:51 PM CDT Impressions 01/09/2025 2:12 PM CDT IMPRESSION: Confluent areas of acute infarction in the left basal ganglia predominantly involving the left caudate nucleus and left putamen consistent with acute infarction in the left lenticulostriate branches of the left MCA.. There is associated mild mass effect with slight effacement of the adjacent left lateral ventricle however without midline shift. No evidence of hemorrhagic transformation Scattered small cortical foci of acute to subacute infarcts noted in the bilateral frontal and parietal lobes and in the left occipital lobe. These are most likely embolic in etiology. > Interpreting Provider: Marcia Monzon MD on 01/09/2025 2:12 PM Narrative 01/09/2025 2:12 PM CDT PROCEDURE: MRI BRAIN WO CONTRAST, DATE/TIME OF EXAM: 01/09/2025 1:12 PM, LOCATION [facility] INDICATION: I63.512: Acute ischemic left MCA stroke (HCC) ADDITIONAL CLINICAL INFORMATION: Ordering Provider Reason For Exam: stroke Technologist Note: Additional: COMPARISON: CT head, angiogram 01/06/2025 TECHNIQUE: MRI of the brain was performed without contrast, according to standard protocol FINDINGS: There is confluent restricted diffusion involving left basal ganglia predominantly involving the left caudate and left putamen consistent with acute infarction. Additional scattered small cortical and subcortical foci of increased DWI signal without significant decrease in ADC signal scattered in the bilateral cerebral hemispheres predominantly involving bilateral parietal lobes and frontal lobes (left greater than right) and also along the left occipital lobe. There is associated FLAIR hyperintensity in these regions. There is slight effacement of the left lateral ventricle secondary to mass effect from left caudate infarction. No evidence of associated susceptibility noted. No evidence of acute hemorrhage noted.. There is mild cerebral volume loss with associated ex vacuo ventricular dilatation. No midline shift noted.. Mild burden of periventricular and scattered subcortical white matter FLAIR hyperintensities likely represent sequelae of chronic small vessel ischemic disease. The corpus callosum and sella appear normal. Chronic infarction noted in the medial aspect of the right basal ganglia with associated susceptibility is chronic hemosiderin deposition. The posterior fossa, brainstem, and craniocervical junction appear normal. 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 Other than mild mucosal thickening in the maxillary sinuses, visualized portions of the orbits, paranasal sinuses, and mastoids appear normal. Normal flow voids are demonstrated in the carotid arteries and basilar artery. Calvarium appears normal. Mild degenerative changes in the partially the cervical spine. Procedure Note Marcia Monzon MD - 01/09/2025 PROCEDURE: MRI BRAIN WO CONTRAST, DATE/TIME OF EXAM: 01/09/2025 1:12 PM, LOCATION [facility] INDICATION: I63.512: Acute ischemic left MCA stroke (HCC) ADDITIONAL CLINICAL INFORMATION: Ordering Provider Reason For Exam: stroke Technologist Note: Additional: COMPARISON: CT head, angiogram 01/06/2025 TECHNIQUE: MRI of the brain was performed without contrast, according to standard protocol FINDINGS: There is confluent restricted diffusion involving left basal ganglia predominantly involving the left caudate and left putamen consistentwith acute infarction. Additional scattered small cortical and subcorticalfoci of increased DWI signal without significant decrease in ADC signal scattered in the bilateral cerebral hemispheres predominantly involving bilateral parietal lobes and frontal lobes (left greater than right) and also along the left occipital lobe. There is associated FLAIR hyperintensity in these regions. There is slight effacement of the left lateral ventricle secondary to mass effect from left caudate infarction.No evidence of associated susceptibility noted. No evidence of acute hemorrhage noted.. There is mild cerebral volumeloss with associated ex vacuo ventricular dilatation. No midline shiftnoted.. Mild burden of periventricular and scattered subcortical white matterFLAIR hyperintensities likely represent sequelae of chronic small vesselischemic disease. The corpus callosum and sella appear normal. Chronic infarction noted in the medial aspect of the right basal ganglia with associated susceptibility is chronic hemosiderin deposition. The posterior fossa, brainstem, and craniocervical junction appear normal. Prominentextra-axial space in the midline of the posterior fossa most likely secondary tomega cisterna magna. Other than mild mucosal thickening in the maxillary sinuses, visualized portions of the orbits, paranasal sinuses, and mastoids appear normal. Normal flow voids are demonstrated in the carotid arteries and basilar artery. Calvarium appears normal. Mild degenerative changes in the partially the cervical spine. IMPRESSION: Confluent areas of acute infarction in the left basal gangliapredominantly involving the left caudate nucleus and left putamen consistent withacute infarction in the left lenticulostriate branches of the left MCA.. Thereis associated mild mass effect with slight effacement of the adjacent left lateral ventricle however without midline shift. No evidence ofhemorrhagic transformation Scattered small cortical foci of acute to subacute infarcts noted in the bilateral frontal and parietal lobes and in the left occipital lobe.These are most likely embolic in etiology. > Interpreting Provider: Marcia Monzon MD on 01/09/2025 2:12 PM Damaris Schmidt MD MR ORDERABLES Final Result * XR Chest 1Vw Portable (01/07/2025 11:46 AM CDT) Anatomical Region Laterality Modality Chest Digital Radiogra phy 01/08/2025 2:45 AM CDT Impressions 01/08/2025 2:47 AM CDT IMPRESSION: Left chest wall pacemaker present with right atrial and right ventricular leads. Lungs are clear without focal consolidation, pleural effusion or pneumothorax. Cardiomediastinal silhouette is normal. > Interpreting Provider: Todd Sierra MD on 01/08/2025 2:47 AM Narrative 01/08/2025 2:47 AM CDT PROCEDURE: XR CHEST 1VW PORTABLE DATE/TIME OF EXAM: 01/07/2025 11:46 AM CLINICAL INFORMATION: None relevant/not provided if blank. Indication: I63.512: Acute ischemic left MCA stroke (HCC) Additional History: COMPARISON: None. Procedure Note Todd Sierra MD - 01/08/2025 PROCEDURE: XR CHEST 1VW PORTABLE DATE/TIME OF EXAM: 01/07/2025 11:46 AM CLINICAL INFORMATION: None relevant/not provided if blank. Indication: I63.512: Acute ischemic left MCA stroke (HCC) Additional History: COMPARISON: None. IMPRESSION: Left chest wall pacemaker present with right atrial and rightventricular leads. Lungs are clear without focal consolidation, pleural effusion or pneumothorax. Cardiomediastinal silhouette is normal. > Interpreting Provider: Todd Sierra MD on 01/08/2025 2:47 AM Damaris Schmidt MD DIAGNOSTIC IMAGING ORDERABLE S Final Result * CT HEAD NON CONTRAST (01/07/2025 10:06 AM CDT) Anatomical Region Laterality Modality Head Computed Tomogra phy 01/07/2025 10:4 0 AM CDT Impressions 01/07/2025 10:44 AM CDT IMPRESSION: 1. No acute intracranial hemorrhage. Given patient's history, a brain MRI may be considered to further evacuated to for potential acute infarct. > Interpreting Provider: Tirso Brock MD on 01/07/2025 10:44 AM Narrative 01/07/2025 10:44 AM CDT PROCEDURE: CT HEAD WO CONTRAST, DATE/TIME OF EXAM: 01/07/2025 10:06 AM, LOCATION [facility] INDICATION: R29.898: RUE weakness I63.512: Acute ischemic left MCA stroke (HCC) ADDITIONAL CLINICAL INFORMATION: Ordering Provider Reason For Exam: 24 h post TNK and MT Technologist Note: Additional: TECHNIQUE: CT of the head was performed without contrast according to standard protocol. CONTRAST: COMPARISON: No prior study is available for comparison at the time of this dictation. FINDINGS: No acute intracranial hemorrhage or intra- or extra-axial fluid collections are identified. There is mild cerebral volume loss with associated ex vacuo ventricular dilatation. A small chronic lacunar infarct in the right basal ganglia. The basal cisterns are patent. No mass effect or midline shift is seen. The escalante-white matter differentiation is normal. The visualized portions of the orbits, paranasal sinuses, and mastoids appear normal. No acute calvarial fracture is identified. Procedure Note Tirso Brock MD - 01/07/2025 PROCEDURE: CT HEAD WO CONTRAST, DATE/TIME OF EXAM: 01/07/2025 10:06 AM, LOCATION [facility] INDICATION: R29.898: RUE weakness I63.512: Acute ischemic left MCA stroke (HCC) ADDITIONAL CLINICAL INFORMATION: Ordering Provider Reason For Exam: 24 h post TNK and MT Technologist Note: Additional: TECHNIQUE: CT of the head was performed without contrast according to standard protocol. CONTRAST: COMPARISON: No prior study is available for comparison at the time ofthis dictation. FINDINGS: No acute intracranial hemorrhage or intra- or extra-axial fluidcollections are identified. There is mild cerebral volume loss with associated exvacuo ventricular dilatation. A small chronic lacunar infarct in the rightbasal ganglia. The basal cisterns are patent. No mass effect or midline shiftis seen. The escalante-white matter differentiation is normal. The visualized portions of the orbits, paranasal sinuses, and mastoids appear normal. No acute calvarial fracture is identified. IMPRESSION: 1. No acute intracranial hemorrhage. Given patient's history, a brainMRI may be considered to further evacuated to for potential acute infarct. > Interpreting Provider: Tirso Brokc MD on 01/07/2025 10:44 AM us Haider Ellison MD CT ORDERABLES Final Resul t * XR Shoulder Right 1Vw (01/07/2025 8:56 AM CDT) Anatomical Region Laterality Modality Upper Extremity Digital Radiogra phy 01/08/2025 2:13 AM CDT Impressions 01/08/2025 2:14 AM CDT IMPRESSION: No displaced fracture or significant dislocation on this single AP view of the shoulder, which is inadequate to evaluate for fractures or dislocation. No opaque foreign body. > Interpreting Provider: Todd Sierra MD on 01/08/2025 2:14 AM Narrative 01/08/2025 2:14 AM CDT PROCEDURE: XR SHOULDER RIGHT 1VW DATE/TIME OF EXAM: 01/07/2025 8:56 AM CLINICAL INFORMATION: None relevant/not provided if blank. Indication: R29.898: RUE weakness I63.512: Acute ischemic left MCA stroke (HCC) R53.1: Right sided weakness Additional History: COMPARISON: None. Procedure Note Todd Sierra MD - 01/08/2025 PROCEDURE: XR SHOULDER RIGHT 1VW DATE/TIME OF EXAM: 01/07/2025 8:56 AM CLINICAL INFORMATION: None relevant/not provided if blank. Indication: R29.898: RUE weakness I63.512: Acute ischemic left MCA stroke (HCC) R53.1: Right sided weakness Additional History: COMPARISON: None. IMPRESSION: No displaced fracture or significant dislocation on this single AP viewof the shoulder, which is inadequate to evaluate for fractures ordislocation. No opaque foreign body. > Interpreting Provider: Todd Sierra MD on 01/08/2025 2:14 AM us Damaris Schmidt MD DIAGNOSTIC IMAGING ORDERABLE S Final Result * LIPID PROFILE (01/07/2025 2:33 AM CDT) Pathologist [facility] Cholesterol Total 154 <200 mg/dL 01/07/2025 3:39 AM [facility] HDL 71 >40 mg/dL 01/07/2025 3:39 AM [facility] Comment: ATP III Classification of HDL Cholesterol: <40 mg/dL: Considered a major risk factor. >60 mg/dL: Considered a negative risk factor. LDL Calculated 68 <100 mg/dL 01/07/2025 3:39 AM [facility] Comment: ATP III Classification of LDL Cholesterol: <100 mg/dL: Optimal 100 - 129 mg/dL: Near Optimal/Above Optimal 130 - 159 mg/dL: Borderline High 160 - 189 mg/dL: High >190 mg/dL: Very High LDL is calculated using the Friedewald equation. Triglycerides 77 <150 mg/dL 01/07/2025 3:39 AM [facility] Comment: ATP III Classification of Triglycerides: <150 mg/dL: Normal 150 - 199 mg/dL: Borderline High 200 - 400 mg/dL: High >500 mg/dL: Very High Blood BLOOD SPECIMEN / Unknown Venipuncture / Unknown 01/07/2025 2:33 AM CDT 01/07/2025 2:50 AM CDT us Haider Ellison MD LAB - CHEMISTRY ORDERABLES Final Result Performing Organization Address City/[facility]/ZIP Co de Phone Number [place] [place] [address], [facility] [phone] * (ABNORMAL) HEMOGLOBIN A1C (01/06/2025 4:48 PM CDT) Hemoglobin A1c 5.8(H) <=5.6 % 01/07/2025 9:59 AM CDT [facility] Estimated Average Glucose 120 mg/dL 01/07/2025 9:59 AM CDT [facility] Comment: HbA1c Interpretation: Normal : < 5.7% Pre-diabetes: 5.7-6.4% Diabetes: Equal to or greater than 6.5% Test results diagnostic of diabetes should be repeated for confirmation. Treatment target values recommended by ADA and other clinical organizations should be used to evaluate metabolic control in patients. Reference: [place] [employer], Standards of Care in Diabetes -2020 In patients 70 years and older consider HbA1c target range of 7.0-7.5% (Reference: Jarek Thomson et al. JAMDA. 2012) The Sebia assay for the measurement of HbA1c is a National Glycohemoglobin Standardization Program (NGSP) certified method. Blood BLOOD SPECIMEN / Unknown Venipuncture / Unknown 01/06/2025 4:48 PM CDT 01/06/2025 5:00 PM CDT Haider Ellison MD LAB - CHEMISTRY ORDERABLES Final Result Performing Organization Address City/[facility]/ZIP Co de Phone Number [address] [address], [facility] [phone] * TROPONIN-I HIGH SENSITIVE REFLEX 1HOUR (01/06/2025 11:26 AM CDT) Troponin I High Sensitive 7 <=35 ng/L 01/06/2025 12:13 PM CDT [facility] Delta Troponin I HS 01/06/2025 12:13 PM CDT [facility] Comment:Delta value intentio cassius not calculated. Baseline to 1 hour specimen collection interval exceeded. Blood BLOOD SPECIMEN / Unknown Venipuncture / Unknown 01/06/2025 11:26 AM CDT 01/06/2025 11:34 AM CDT Result [facility] Haider Ellison MD LAB - CHEMISTRY ORDERABLES Final Result Performing Organization Address [facility]/ZIP Co de Phone Number [address] [address], [facility] [phone] * PTT [facility] (01/06/2025 10:34 AM CDT) APTT 31.6 23.0 - 38.4 Seconds 01/06/2025 11:14 AM T [facility] Comment:Suggested therapeuti c range for full dose I.V. unfractionated heparin therapy for venous thromboembolism is 71 to 109 seconds. Blood BLOOD SPECIMEN / Unknown Venipuncture / Unknown 01/06/2025 10:34 AM CDT 01/06/2025 10:53 AM CDT Result [facility] Isauro Aguilar MD LAB - COAGULATION ORDERABLES Final Result Performing Organization Address [facility] Co de Phone Number [address] [address], [facility] [phone] * PT-INR [facility] (01/06/2025 10:34 AM CDT) PT 12.7 12.1 - 14.8 Seconds 01/06/2025 11:14 AM [facility] INR 1.0 See Comment 01/06/2025 11:14 AM [facility] Comment:The suggested therap eutic range for standard coumadin (warfarin) therapy is an INR of 2.0-3.0. For high-risk patients (Mechanical Mitral Valve Prosthesis, etc.), the suggested prophylactic therapeutic range is an INR of 2.5-3.5. Blood BLOOD SPECIMEN / Unknown Venipuncture / Unknown 01/06/2025 10:34 AM CDT 01/06/2025 10:53 AM CDT Isauro Aguilar MD LAB - COAGULATION ORDERABLES Final Result [facility] [address] [place] [address], [facility] [phone] * CT ANGIO BRAIN NECK STROKE (01/06/2025 9:09 AM CDT) Anatomical Region Laterality Modality Head Computed Tomogra phy 01/06/2025 9:14 AM CDT Impressions 01/06/2025 6:05 PM CDT IMPRESSION: 1.No acute intracranial hemorrhage. 2.Complete occlusion of the M1 segment of left middle cerebral artery. 3.There is critical stenosis of the proximal left internal carotid artery with focal occlusion and distal reconstitution. 4.Evolving acute infarct in the left MCA territory. No evidence of hemorrhagic transformation. These findings were discussed in detail with the patient's care provider, Dr Pyle by Dr. Robert Jalloh via telephone at 01/06/2025 9:38 AM with readback comprehension and verification. Viz.AI was used for large vessel occlusion detection. Report dictated by Robert Jalloh MD, (Automotive Hardware Engineer). I, Linda Dial MD have personally reviewed and interpreted this examination/study. > Interpreting Provider: Linda Dial MD on 01/06/2025 6:05 PM Narrative 01/06/2025 6:05 PM CDT PROCEDURE: CT ANGIO BRAIN NECK STROKE, DATE/TIME OF EXAM: 01/06/2025 9:10 AM, LOCATION [facility] INDICATION: R29.898: RUE weakness ADDITIONAL CLINICAL INFORMATION: Ordering Provider Reason For Exam: Right upper extremity weakness. Technologist Note: None. Additional: None. EXAMINATION: 1. Computed tomographic (CT) angiography of the head with contrast 2. CT angiography of the neck with contrast CONTRAST: IOPAMIDOL 76 % IV SOLN:75 mL TECHNIQUE: CT angiography of the head and neck was obtained after the uneventful administration of 75 mL Isovue-370 intravenous contrast. Three dimensional postprocessing was performed by the technologist and sent to the workstation for review. Stenosis measurements are based on NASCET criteria. CT dose reduction technique was used, including Automated Exposure Control. COMPARISON: CT brain stroke same day. FINDINGS: Non-angiographic findings: Please refer to the separately dictated noncontrast head CT for the non-angiographic findings. Partially imaged ICD is noted. Borderline developmental cervical spinal canal stenosis and superimposed multilevel degenerative disc and joint disease resulting in up to moderate spinal canal stenosis at C3-C4 and C4-C5.. Angiographic findings: There is atherosclerotic disease of the aortic arch. The configuration of the brachiocephalic vessels is typical. There is atherosclerotic calcification of the innominate and subclavian arteries. There is atherosclerotic disease of the right carotid bifurcation and origin of the right internal carotid artery with less than 50 percent focal stenosis by NASCET criteria. The right common and internal carotid arteries otherwise appear normal. There is atherosclerotic disease of the left carotid bifurcation and origin of the left internal carotid artery with more than than 90 percent focal stenosis by NASCET criteria. Atherosclerotic disease of the remaining left common and internal carotid arteries. The right vertebral artery is mildly dominant compared to the left. Other than mild focal stenosis at their origins due to atherosclerotic disease, the cervical vertebral arteries appear normal. There is atherosclerotic disease involving the distal internal carotid arteries with moderate multifocal stenoses. Complete occlusion of the M1 segment of left middle cerebral artery. There is distal reconstitution of one division of M2. The anterior and right middle cerebral arteries appear normal. The distal vertebral arteries appear normal. The basilar artery and posterior cerebral arteries appear normal. No aneurysms, vascular occlusions, or intracranial stenoses are identified. Procedure Note Linda Dial MD - 01/06/2025 PROCEDURE: CT ANGIO BRAIN NECK STROKE, DATE/TIME OF EXAM: :10 AM, LOCATION [facility] INDICATION: R29.898: RUE weakness ADDITIONAL CLINICAL INFORMATION: Ordering Provider Reason For Exam: Right upper extremity weakness. Technologist Note: None. Additional: None. EXAMINATION: 1. Computed tomographic (CT) angiography of the head with contrast 2. CT angiography of the neck with contrast CONTRAST: IOPAMIDOL 76 % IV SOLN:75 mL TECHNIQUE: CT angiography of the head and neck was obtained after the uneventful administration of 75 mL Isovue-370 intravenous contrast.Three dimensional postprocessing was performed by the technologist and sent to the workstation for review. Stenosis measurements are based on NASCET criteria. CT dose reduction technique was used, including Automated Exposure Control. COMPARISON: CT brain stroke same day. FINDINGS: Non-angiographic findings: Please refer to the separately dictated noncontrast head CT for the non-angiographic findings. Partially imaged ICD is noted. Borderline developmental cervical spinal canal stenosis and superimposed multilevel degenerative disc and joint disease resulting in up to moderate spinal canal stenosis at C3-C4 and C4-C5.. Angiographic findings: There is atherosclerotic disease of the aortic arch. The configurationof the brachiocephalic vessels is typical. There is atherosclerotic calcification of the innominate and subclavian arteries. There is atherosclerotic disease of the right carotid bifurcation and origin ofthe right internal carotid artery with less than 50 percent focal stenosisby NASCET criteria. The right common and internal carotid arteriesotherwise appear normal. There is atherosclerotic disease of the left carotid bifurcation and origin of the left internal carotid artery with morethan than 90 percent focal stenosis by NASCET criteria. Atheroscleroticdisease of the remaining left common and internal carotid arteries. The right vertebral artery is mildly dominant compared to the left. Other thanmild focal stenosis at their origins due to atherosclerotic disease, the cervical vertebral arteries appear normal. There is atherosclerotic disease involving the distal internal carotid arteries with moderate multifocal stenoses. Complete occlusion of the M1 segment of left middle cerebral artery. There is distal reconstitutionof one division of M2. The anterior and right middle cerebral arteriesappear normal. The distal vertebral arteries appear normal. The basilar arteryand posterior cerebral arteries appear normal. No aneurysms, vascular occlusions, or intracranial stenoses are identified. IMPRESSION: 1.No acute intracranial hemorrhage. 2.Complete occlusion of the M1 segment of left middle cerebral artery. 3.There is critical stenosis of the proximal left internal carotidartery with focal occlusion and distal reconstitution. 4.Evolving acute infarct in the left MCA territory. No evidence of hemorrhagic transformation. These findings were discussed in detail with the patient's careprovider, Dr Pyle by Dr. Robert Jalloh via telephone at 01/06/2025 9:38 AM withreadback comprehension and verification. Viz.AI was used for large vessel occlusion detection. Report dictated by Robert Jalloh MD, (Automotive Hardware Engineer). I, Linda Dial MD have personally reviewed and interpretedthis examination/study. > Interpreting Provider: Linda Dial MD on 01/06/2025 6:05 PM Isauro Aguilar MD CT ORDERABLES Final Result * TROPONIN-I HIGH SENSITIVE (01/06/2025 8:57 AM CDT) [facility] Troponin I High Sensitive 4 <=35 ng/L 01/06/2025 9:36 AM CDT [facility] Blood BLOOD SPECIMEN / Unknown Venipuncture / Unknown 01/06/2025 8:57 AM CDT 01/06/2025 9:16 AM CDT us Isauro Aguilar MD LAB - CHEMISTRY ORDERABLES F inal Result [address] [address], [place] [phone] * TROPONIN-I HIGH SENSITIVE BASELINE + 1HR (01/06/2025 8:57 AM CDT) [facility] Troponin I High Sensitive 4 <=35 ng/L 01/06/2025 9:36 AM CDT [facility] Blood BLOOD SPECIMEN / Unknown Venipuncture / Unknown 01/06/2025 8:57 AM CDT 01/06/2025 9:16 AM CDT us Haider Ellison MD LAB - CHEMISTRY ORDERABLES Final Result Performing Organization Address [facility]/ZIP Co de Phone Number [address] [address], [place] [phone] * CBC W AUTO DIFFERENTIAL (01/06/2025 8:57 AM CDT) [facility] WBC 7.5 4.0 - 10.7 x10E9/L 01/06/2025 9:12 AM CDT [facility] RBC Count 4.63 4.30 - 5.80 x10E12/L 01/06/2025 9:12 AM CDT [facility] Hemoglobin 14.2 13.3 - 17.5 g/dL 01/06/2025 9:12 AM CDT [facility] Hematocrit 41.8 38.7 - 51.1 % 01/06/2025 9:12 AM T [facility] MCV 90.3 80.0 - 98.0 fL 01/06/2025 9:12 AM [facility] MCH 30.7 26.7 - 33.6 pg 01/06/2025 9:12 AM [facility] MCHC 34.0 31.7 - 36.3 g/dL 01/06/2025 9:12 AM [facility] RDW-CV 13.5 11.3 - 14.8 % 01/06/2025 9:12 AM [facility] Platelet Count 163 150 - 420 x10E9/L 01/06/2025 9:12 AM [facility] MPV 10.3 7.8 - 11.4 fL 01/06/2025 9:12 AM [facility] Neutrophil % 61.8 41.0 - 74.0 % 01/06/2025 9:12 AM [facility] Lymphocyte % 22.8 17.0 - 47.0 % 01/06/2025 9:12 AM [facility] Monocyte % 10.3 3.0 - 11.0 % 01/06/2025 9:12 AM [facility] Eosinophil % 3.7 0.0 - 7.0 % 01/06/2025 9:12 AM [facility] Basophil % 1.1 0.0 - 1.6 % 01/06/2025 9:12 AM [facility] Immature Granulocytes % 0.3 0.0 - 1.0 % 01/06/2025 9:12 AM [facility] Neutrophil Absolute 4.66 1.60 - 7.50 x10E9/L 01/06/2025 9:12 AM [facility] Lymphocyte Absolute 1.72 1.00 - 4.40 x10E9/L 01/06/2025 9:12 AM [facility] Monocyte Absolute 0.78 0.15 - 1.00 x10E9/L 01/06/2025 9:12 AM [facility] Eosinophil Absolute 0.28 0.00 - 0.60 x10E9/L 01/06/2025 9:12 AM [facility] Basophil Absolute 0.08 0.00 - 0.13 x10E9/L 01/06/2025 9:12 AM [facility] Blood BLOOD SPECIMEN / Unknown Venipuncture / Unknown 01/06/2025 8:57 AM CDT 01/06/2025 9:06 AM [facility] Isauro Aguilar MD LAB - HEMATOLOGY ORDERABLES Final Result [facility] [address] [place] [phone], [facility] [phone] * (ABNORMAL) COMPREHENSIVE METABOLIC PANEL (01/06/2025 8:57 AM [facility]) BUN 6(L) 7 - 26 mg/dL 01/06/2025 9:31 AM [facility] Creatinine 0.59(L) 0.71 - 1.16 mg/dL 01/06/2025 9:31 AM [facility] Sodium 138 136 - 145 mmol/L 01/06/2025 9:31 AM [facility] Potassium 3.8 3.5 - 4.5 mmol/L 01/06/2025 9:31 AM [facility] Chloride 111(H) 98 - 107 mmol/L 01/06/2025 9:31 AM [facility] CO2 21(L) 22 - 29 mmol/L 01/06/2025 9:31 AM [facility] Glucose 97 70 - 99 mg/dL 01/06/2025 9:31 AM [facility] Calcium 8.2(L) 8.4 - 10.2 mg/dL 01/06/2025 9:31 AM [facility] Protein Total 6.4 6.0 - 8.3 g/dL 01/06/2025 9:31 AM [facility] [facility] Albumin 3.5 3.4 - 5.0 g/dL 01/06/2025 9:31 AM [facility] Bilirubin Total 0.3 0.2 - 1.2 mg/dL 01/06/2025 9:31 AM [facility] Alkaline Phosphatase 84 40 - 150 U/L 01/06/2025 9:31 AM [facility] ALT 23 5 - 55 U/L 01/06/2025 9:31 AM [facility] AST 31 5 - 34 U/L 01/06/2025 9:31 AM [facility] Anion Gap 6 6 - 16 01/06/2025 9:31 AM [facility] BUN/Creatinine Ratio 10 7 - 23 01/06/2025 9:31 AM [facility] Osmolality Calculated 284 275 - 295 mOsm/kg 01/06/2025 9:31 AM [facility] Albumin/Globulin Ratio 1.2 1.1 - 2.3 01/06/2025 9:31 AM [facility] eGFR by CKD-EPI >90 >=90 mL/min/1.7 3 m2 01/06/2025 9:31 AM [facility] Comment:Estimated Glomerular Filtration Rate (eGFR) calculated using the CKD-EPI Creatinine Equation (2020), per the [employer] and [employer]ph[employer] recommendations. Blood BLOOD SPECIMEN / Unknown Venipuncture / Unknown 01/06/2025 8:57 AM CDT 01/06/2025 9:16 AM CDT us Isauro Aguilar MD LAB - CHEMISTRY ORDERABLES F inal Result [address] [address], [facility] [phone] * ISTAT CREATININE (01/06/2025 8:36 AM CDT) Creatinine POCT 0.70 0.60 - 1.30 mg/dL 01/06/2025 9:08 AM [facility] eGFR by CKD-EPI >90 >90 mL/min/1.7 3 m2 01/06/2025 9:08 AM [facility] Sample iSTAT JASMINE 01/06/2025 9:08 AM [facility] Blood BLOOD SPECIMEN / Unknown 01/06/2025 8:36 AM CDT 01/06/2025 9:08 AM CDT us Haider Ellison MD LAB - POINT OF CARE ORDERAB LES Final Result [address] [address], [facility] [phone] * INR WHOLE BLOOD - POINT OF CARE (IP) STROKE (01/06/2025 8:32 AM CDT) INR 1.1 0.9 - 1.2 01/06/2025 9:08 AM CDT [facility] Device [id number] 01/06/2025 9:08 AM CDT [facility] Environmental Laboratory Technician ID [id number] 01/06/2025 9:08 AM CDT [facility] Blood BLOOD SPECIMEN / Unknown 01/06/2025 8:32 AM CDT 01/06/2025 9:08 AM CDT us Haider Ellison MD LAB - POINT OF CARE ORDERAB LES Final Result Performing Organization Address City/[facility]/ZIP Co de Phone Number [address] [address], [facility] [phone] * CT BRAIN - Stroke (01/06/2025 8:23 AM CDT) Anatomical Region Laterality Modality Head Computed Tomogra phy 01/06/2025 8:36 AM CDT Impressions 01/06/2025 8:48 AM CDT IMPRESSION: 1.No acute intracranial hemorrhage. 2.Suspected evolving acute left MCA territory infarction as detailed above. No evidence of hemorrhagic transformation at this time. 3.MRI of the brain is recommended for further evaluation.. 4.ECASS Hemorrhagic Transformation Score = Not Applicable Results of this exam were communicated with closed loop confirmation to Dr. Pyle by Dr. Dial on 01/06/2025 at 8:37 AM, with read back comprehension and verification. > Interpreting Provider: Linda Dial MD on 01/06/2025 8:48 AM Narrative 01/06/2025 8:48 AM CDT PROCEDURE: CT BRAIN STROKE, DATE/TIME OF EXAM: 01/06/2025 8:44 AM, LOCATION [facility] INDICATION: R29.898: RUE weakness ADDITIONAL CLINICAL INFORMATION: Ordering Provider Reason For Exam: Code stroke. Technologist Note: None. Additional: None. TECHNIQUE: CT of the head was performed without contrast according to standard protocol. CT dose reduction technique was used, including Automated Exposure Control. COMPARISON: No prior study is available for comparison at the time of this dictation. FINDINGS: FINDINGS: Limitations: The images are degraded due to motion artifacts. Within this limitation: Acute ischemic change: There is hypoattenuation and loss of esaclante-white matter differentiation in the left temporal lobe, (series 3, image 15). Additionally, there could be hypoattenuation in the anterior/anterolateral superior left frontal lobe, (series 3, image 23). Findings are concerning for evolving left MCA territory infarction. Hemorrhage: No evidence of acute intracranial hemorrhage. ECASS Hemorrhagic Transformation Score = Not Applicable Subtle hyperdensity within the left sylvian fissure could represent left MCA hyperdense sign. There is mild cerebral volume loss with associated ex vacuo ventricular dilatation. The basilar cisterns are patent. No mass effect or midline shift is seen. The escalante-white matter differentiation otherwise appears normal. Periventricular white matter hypoattenuation is indicative of chronic small vessel ischemic disease. There is vascular calcification of the carotid siphons. No acute calvarial fracture is identified. The orbits appear normal. There is mild paranasal sinus disease. There is diffuse paranasal sinus disease. There are frothy secretions in the paranasal sinuses. The mastoid air cells are grossly clear. No soft tissue abnormality is identified. Procedure Note Linda Dial MD - 01/06/2025 PROCEDURE: CT BRAIN STROKE, DATE/TIME OF EXAM: 01/06/2025 8:44 AM,LOCATION [facility] INDICATION: R29.898: RUE weakness ADDITIONAL CLINICAL INFORMATION: Ordering Provider Reason For Exam: Code stroke. Technologist Note: None. Additional: None. TECHNIQUE: CT of the head was performed without contrast according to standard protocol. CT dose reduction technique was used, including Automated Exposure Control. COMPARISON: No prior study is available for comparison at the time ofthis dictation. FINDINGS: FINDINGS: Limitations: The images are degraded due to motion artifacts. Withinthis limitation: Acute ischemic change: There is hypoattenuation and loss of escalante-white matter differentiation in the left temporal lobe, (series 3, image 15). Additionally, there could be hypoattenuation in theanterior/anterolateral superior left frontal lobe, (series 3, image 23). Findings areconcerning for evolving left MCA territory infarction. Hemorrhage: No evidence of acute intracranial hemorrhage. ECASS Hemorrhagic Transformation Score = Not Applicable Subtle hyperdensity within the left sylvian fissure could represent left MCA hyperdense sign. There is mild cerebral volume loss with associatedex vacuo ventricular dilatation. The basilar cisterns are patent. No mass effect or midline shift is seen. The escalante-white matter differentiation otherwise appears normal. Periventricular white matter hypoattenuationis indicative of chronic small vessel ischemic disease. There is vascular calcification of the carotid siphons. No acute calvarial fracture is identified. The orbits appear normal. There is mild paranasal sinus disease. There is diffuse paranasal sinus disease. There are frothy secretions in the paranasal sinuses. The mastoid air cells are grossly clear. No soft tissue abnormality is identified. IMPRESSION: 1.No acute intracranial hemorrhage. 2.Suspected evolving acute left MCA territory infarction as detailedabove. No evidence of hemorrhagic transformation at this time. 3.MRI of the brain is recommended for further evaluation.. 4.ECASS Hemorrhagic Transformation Score = Not Applicable Results of this exam were communicated with closed loop confirmation toDr. Pyle by Dr. Dial on 01/06/2025 at 8:37 AM, with read backcomprehension and verification. > Interpreting Provider: Linda Dial MD on 01/06/2025 8:48 AM Isauro Aguilar MD CT ORDERABLES Final Result from Last 3 Months Advance Directives * Full Code (Latest Code Status on File) Date Activated Date Inactivated Comments 01/06/2025 8:44 AM 01/18/2025 1:01 PM Care Teams Band Shover Relationship Specialty Start Date End Date Provider, No Pcp PCP - General 01/06/25
[2025-02-04 21:05] VITALS: BP 152/76; PULSE 97; RESP 18; O2SAT 99
--- NOTE | 2025-02-04 21:15 | ECG_ITS ---
Test Date: 2025-02-04 21:19:20 Measurements Intervals [place] Rate: 87 P: 80 MA: 129 QRS: 82 QRSD: 86 T: 70 QT: 349 QTc: 420 Interpretive Statements SINUS RHYTHM POSSIBLE RIGHT VENTRICULAR CONDUCTION DELAY VOLTAGE CRITERIA FOR LVH BASELINE ARTIFACT- I, II, AVR, AVL, V1-V6 BORDERLINE ECG No previous ECG available for comparison Electronically Signed On 02-05-2025 06:25:10 CDT by Landen Betancourt D.O.
--- OUTSIDE RECORDS SUMMARY | 2025-02-05 00:29 | XMS_ITS | Clinical Summary ---
Author Organization [facility] Address [address] [place] [id number] Phone Care Team Providers Care Admissions Gate Attendant Name Role Phone Unavailable Primary Care Provider [...]
--- OUTSIDE RECORDS SUMMARY | 2025-02-05 00:29 | XMS_ITS | Clinical Summary ---
Author Organization [facility] Address [address] [place] [address] Care Team Providers Care Broiler Chef Or Cook Name Role Phone Unavailable Primary Care Provider Unavailabl e Source Comments You are receiving this document as you are listed as the PCP, follow-upprovider, or the patient hasbeen referred to you for consultation. This is incompliance with [facility] Transitions of Care Requirement. Note: Specific treatmentrecords and notes about services for mental health, developmental disabilities,alcoholism, drug dependence, or substance abuse, you will need to contact theMedical Records Department at [phone] and complete a separate Release ofAuthorization form. They are also available to answer other questions.[facility] Social History Tobacco Use Types Packs/Day Years [...]
--- OUTSIDE RECORDS SUMMARY | 2025-02-05 00:29 | XMS_ITS | Clinical Summary ---
Author Organization [facility] Address [address] [place] [address] Care Team Providers Care Greens Picker Name Role Phone Provider, No Pcp Primary Care Provider Unavailab le Source Comments [facility],non-owned Affiliates and Associated Physician Practices is amultiple site organization consisting of ambulatory clinics and hospital sitesin [place], [place], [place] and [place]. This disclosure is being madepursuant to the Care Everywhere program and may not contain all information available regarding this patient. Last updated 18.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 [facility] [place] [address] Félix Horowitz MD Kister, Joseph Anthony, CAA 01/17/2025 11:25 AM CDT - 01/17/2025 2:05 PM CDT Surgery [facility] - Cardiac Furnace Charging Machine Operator [address] [place] [address] Jada Connor MD Pacemaker Generator Replacement Dual Chamber 01/14/2025 7:58 AM CDT Anesthesia Event [facility] IVR [address] [place] [address] Yancy Munroe MD McDowell, Jacob A, CAA 01/06/2025 8:24 AM CDT - 01/18/2025 11:51 AM CDT Hospital Encounter [facility] 5N ACUTE [address] [place] [address] Haider Ellison MD Esechie, Aimalohi, MD Demars, [...] Recorded Patient Health Questionnaire-2 Score 0 01/17/2025 [facility] - Occupational Stress [...] any time in the past [address] [facility], were you homeless or living in a penitentiary (including now)? 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 Procedure visit [facility] - Cardiology [address], [place] [address] [place] [phone] 10/24/2025 1:00 AM CDT Procedure visit [facility] - Cardiology [address], [address] [address] 01/23/2026 1:00 AM CDT Procedure visit [facility] - Cardiology [address], [address] [address] Health Maintenance Due Date Last Done Comments [...] this topic Medical Devices Implanted Type Area Huc Ob Device Identifier Shelf Expiration Date Model / Serial / Lot [id number] Cardiac Lead Cava Grill Nathaniel [id number] / / [id number] Cardiac Lead Stephens Kleek Nathaniel [id number] / / Stephens [employer] Dual Chamber L311 Pacemaker Heart Cava Grill Nathaniel L311 / / Stent Xact 6-8mm 30mm Crtd Slf Xpd Cls Implanted:Qty : 1 on 01/14/2025 at [facility] Left: Carotid More Vascular [id number] 10/01/2026 [id number] / / [id number] Pacemkr Acld Pacesafe Ltd Nxt Easyview - [id number] Implanted:Qty : 1 on 01/17/2025 by Jada Connor MD at [facility] Left: Chest Stephens Scientific Scimed [id number] 09/06/2026 L311 / [id number] / NA Env Defib 3.3x2.9in Aigisrx Icd Tyrx Lg - [id number] Implanted:Qty : 1 on 01/17/2025 by Jada Connor MD at [facility] Left: Chest Medtronic Inc [id number] 10/04/2025 [id number] / [id number] / [id number] Procedures Procedure Name Priority Date/Time Associated Diagnosis [...] 4.0 - 10.7 x10E9/L 01/18/2025 4:32 AM [facility] RBC Count 3.86(L) 4.30 - 5.80 x10E12/L 01/18/2025 4:32 AM [facility] Hemoglobin 11.8(L) 13.3 - 17.5 g/dL 01/18/2025 4:32 AM [facility] Hematocrit 34.5(L) 38.7 - 51.1 % 01/18/2025 4:32 AM [facility] MCV 89.4 80.0 - 98.0 fL 01/18/2025 4:32 AM [facility] MCH 30.6 26.7 - 33.6 pg 01/18/2025 4:32 AM [facility] MCHC 34.2 31.7 - 36.3 g/dL 01/18/2025 4:32 AM [facility] RDW-CV 12.5 11.3 - 14.8 % 01/18/2025 4:32 AM [facility] Platelet Count 251 150 - 420 x10E9/L 01/18/2025 4:32 AM [facility] MPV 10.2 7.8 - 11.4 fL 01/18/2025 4:32 AM [facility] Blood BLOOD SPECIMEN / Unknown Lab Venipuncture / Unknown 01/18/2025 4:12 AM CDT 01/18/2025 4:25 AM CDT us Damaris Schmidt MD LAB - HEMATOLOGY ORDERABLES Final Result [facility] [address] [place] [address], [facility] [phone] * (ABNORMAL) BASIC METABOLIC PANEL (CALCIUM TOTAL) (01/18/2025 4:12 AM CDT) Only the most recent of13 resultswithin the time period is included. BUN 16 7 - 26 mg/dL 01/18/2025 4:58 AM [facility] Creatinine 0.47(L) 0.71 - 1.16 mg/dL 01/18/2025 4:58 AM [facility] Sodium 133(L) 136 - 145 mmol/L 01/18/2025 4:58 AM [facility] Potassium 4.2 3.5 - 4.5 mmol/L 01/18/2025 4:58 AM [facility] Chloride 104 98 - 107 mmol/L 01/18/2025 4:58 AM [facility] CO2 22 22 - 29 mmol/L 01/18/2025 4:58 AM [facility] Glucose 119(H) 70 - 99 mg/dL 01/18/2025 4:58 AM [facility] Calcium 8.7 8.4 - 10.2 mg/dL 01/18/2025 4:58 AM [facility] Anion Gap 7 6 - 16 01/18/2025 4:58 AM [facility] BUN/Creatinine Ratio 34(H) 7 - 23 01/18/2025 4:58 AM CDT [facility] Osmolality Calculated 278 275 - 295 mOsm/kg 01/18/2025 4:58 AM CDT [facility] eGFR by CKD-EPI >90 >=90 mL/min/1.7 3 m2 01/18/2025 4:58 AM CDT [facility] Comment:Estimated Glomerular Filtration Rate (eGFR) calculated using the CKD-EPI Creatinine Equation (2020), per the National Kidney Foundation and [place] Society of Nephrology recommendations. Blood BLOOD SPECIMEN / Unknown Lab Venipuncture / Unknown 01/18/2025 4:12 AM CDT 01/18/2025 4:25 AM CDT us Haider Ellison MD LAB - CHEMISTRY ORDERABLES Final Result Performing Organization Address City/[facility]/ZIP Co de Phone Number [address] [address], [place] [phone] * PHOSPHORUS BLOOD (01/18/2025 4:12 AM CDT) Only the most recent of13 resultswithin the time period is included. Phosphorus 3.9 2.8 - 5.1 mg/dL 01/18/2025 4:58 AM CDT [facility] Blood BLOOD SPECIMEN / Unknown Lab Venipuncture / Unknown 01/18/2025 4:12 AM CDT 01/18/2025 4:25 AM CDT us Damaris Schmidt MD LAB - CHEMISTRY ORDERABLES F inal Result [address] [address], [place] [phone] * MAGNESIUM BLOOD (01/18/2025 4:12 AM CDT) Only the most recent of13 resultswithin the time period is included. Magnesium 1.8 1.6 - 2.6 mg/dL 01/18/2025 4:58 AM CDT [facility] Blood BLOOD SPECIMEN / Unknown Lab Venipuncture / Unknown 01/18/2025 4:12 AM CDT 01/18/2025 4:25 AM CDT us Damaris Schmidt MD LAB - CHEMISTRY ORDERABLES F inal Result [facility] [address] [place] [address], [facility] [phone] * CCL PACEMAKER GENERATOR REPLACEMENT DUAL CHAMBER [...] Pacemkr Acld Pacesafe Ltd Nxt Easyview - [id number] Type: Inv. Item: Pacemkr Acld Pacesafe Ltd Nxt Easyview Serial No.: [id number] Huc Ob: Bonsai AI Implant Name: Env Defib 3.3X2.9In Aigisrx Icd Tyrx Lg - [id number] Type: Inv. Item: Env Defib 3.3X2.9In Aigisrx Icd Tyrx Lg Serial No.: [id number] Huc Ob: Butterfleye Inc Lot No.: [id number] Implanted: RV lead: Sensing: >25 mV Threshold: 0.7@0.4 ms Impedance: 550 ohms RA lead: Sensin.0 mV Threshold: 0.4V @0.4 ms Impedance: 450 ohms Jada Connor MD CV ELECTROPHYSIOLOGY CUPID PROCS Final Result * (ABNORMAL) LIPOPROTEIN A (01/17/2025 3:11 AM CDT) [facility] Lipoprotein (a) 39(H) <=29 mg/dL 01/19/2025 12:33 PM CDT [employer] ([facility]) Comment: Performed By: [facility] [address] [place] [address] Patient Safety Manager: Chad Ferrer MD, PhD CLIA Number: [id number] Blood BLOOD SPECIMEN / Unknown Lab Venipuncture / Unknown 01/17/2025 3:11 AM CDT 01/17/2025 3:52 AM CDT Filiberto Marshall MD LAB - CHEMISTRY ORDERABLES Final Result [facility]) [address] [place] [address] * APOLIPOPROTEIN B (01/17/2025 3:11 AM CDT) [facility] Apolipoprotein B 37 <90 mg/dL 01/21/20 4:09 PM CDT [facility] ([facility]) Comment: Desirable < 90 Borderline High 90 - 99 High 100 - 130 Very High >130 ASCVD RISK THERAPEUTIC TARGET CATEGORY APO B (mg/dL) Very High Risk <80 (if extreme risk <70) High Risk <90 Moderate Risk <90 Blood BLOOD SPECIMEN / Unknown Lab Venipuncture / Unknown 01/17/2025 3:11 AM CDT 01/17/2025 3:52 AM CDT Narrative [facility] ([facility]) - 01/20/2025 4:09 PM CDT Performed at: 01 - [address] [id number] Comic Book Artist: Paige Ny MD, Phone: [phone] us Filiberto Marshall MD LAB - CHEMISTRY ORDERABLES Final Result [facility] ([facility]) [address] [place] [address] * CARDIAC PROCEDURE ORDER (01/17/2025) Only [...] DATE/TIME OF EXAM: 01/15/2025 10:35 AM, LOCATION [facility] INDICATION: I63.512: Acute ischemic left MCA stroke [...] of venous structures, if performed) (CPT code: 94016). Acquisition mode: Retrospective ECG gated. 60 seconds [...] DATE/TIME OF EXAM: 01/15/2025 10:35 AM, LOCATION [facility] INDICATION: I63.512: Acute ischemic left MCA stroke [...] evaluation of venous structures, if performed)(CPT code: 43302). Acquisition mode: Retrospective ECG gated. 60 seconds [...] lesion. > Dictated by Bernabe Xiao DO (residential treatment counselor). I, Kiah Rocha MD have personally reviewed and interpreted this examination/study. > Interpreting Provider: Kiah Rocha MD on 01/14/2025 3:25 PM Narrative 01/14/2025 3:25 PM CDT PROCEDURE: CT ANGIO ABDOMEN PELVIS, DATE/TIME OF EXAM: 01/14/2025 2:24 PM, LOCATION [facility] INDICATION: R10.30: Lower abdominal pain ADDITIONAL CLINICAL [...] is seen with moderate takeoff stenosis. The KARTINA likely supplies significant collaterals to the vascular [...] PELVIS, DATE/TIME OF EXAM: 01/14/2025 2:24PM, LOCATION [facility] INDICATION: R10.30: Lower abdominal pain ADDITIONAL CLINICAL [...] lesion. > Dictated by Bernabe Xiao DO (residential treatment counselor). I, Kiah Rocha MD have personally reviewed and interpreted this examination/study. > Interpreting Provider: Kiah Rocha MD on 53:25 PM us Filiberto Marshall MD CT ORDERABLES Final Resul t * (ABNORMAL) GLUCOSE - POINT OF CARE (01/14/2025 10:16 AM CDT) Only the most recent of7 resultswithin the time period is included. Glucose WB/POC 136(H) 70 - 99 mg/dL 01/14/2025 10:20 AM CDT [facility] Specimen Type Arterial/C apillary 01/14/2025 10:20 AM CDT [facility] Blood BLOOD SPECIMEN / Unknown 01/14/2025 10:16 AM CDT 01/14/2025 10:20 AM CDT us Filiberto Marshall MD LAB - POINT OF CARE ORDERAB LES Final Result [facility] [address] [place] [address], [facility] [phone] * IR Carotid or Vertebral Stent (01/14/2025 [...] ICA endovascular revascularization with angioplasty and stenting. Chemical Engineer: Dr. Josselyn Marshall Boiler Operators Supervisor(s): Anderson Lo Vessels: Ultrasound Guided Access of [...] the guidance of attending Anesthesiologist and his social service assistant. Procedural Detail: I, Dr. Josselyn Marshall, [...] was placed, through the sheath a 6 Upper Sorbian Cook Shuttle and a 5F [employer] select rhodes 1 catheter were navigated into the aortic arch. The 6 Upper Sorbian Cook Shuttle was exchanged for a 7 [...] system. Hemostasis was achieved using a 8 Upper Sorbian Angio-Seal closure device. Hemostasis was immediate at [...] ICA endovascular revascularization with angioplasty and stenting. Chemical Engineer: Dr. Josselyn Marshall Boiler Operators Supervisor(s): Anderson Lo Vessels: Ultrasound Guided Access of [...] the guidance of attending Anesthesiologist and his social service assistant. Procedural Detail: I, Dr. Josselyn Marshall, [...] navigated into the aortic arch. The 6 Upper Sorbian Cook Shuttle was exchanged for a 7 [...] arterial system. Hemostasiswas achieved using a 8 Upper Sorbian Angio-Seal closure device. Hemostasis was immediate at [...] Final Result * ACT LR - POCT ([facility]) (01/14/2025 9:00 AM CDT) Pathologist [facility] ACT LR 293 See result comments sec 01/21/2025 7:30 AM CDT [facility] Blood BLOOD SPECIMEN / Unknown 01/14/2025 9:00 AM CDT 01/21/2025 7:30 AM CDT Narrative [facility] - 01/21/2025 7:30 AM CDT ACT-LR Therapeutics ranges are: Cardiac laborer tree tapping = 200-300 seconds Sheath pull = ACT [...] LAB - COAGULATION ORDERABLE S Final Result [facility] [address] [place] [address], [facility] [phone] * ETT LINE PERFORMABLE (01/14/2025 8:29 AM CDT) Narrative Jonathan Gamboa CAA - 01/14/2025 8:29 AM CDT Jonathan Gamboa CAA 01/14/2025 8:30 AM Endotracheal Tube Placement: Patient Location: OR. Intubation Event Date/Time: 01/14/2025 8:10 AM Procedure: intubation ([id number]) Procedure Section: Sedation: under general anesthesia. Indications [...] Time: 01/14/2025 8:13 AM Procedure: IV start ([id number]) Procedure Section: Skin Prep: alcohol. Orientation: left [...] EKG 12-Lead (01/09/2025 5:11 PM CDT) Pathologist [facility] Ventricular Rate 76 BPM [facility] MUSE Atrial Rate 76 BPM [facility] MUSE P-R Interval 152 ms [facility] MUSE QRS Duration ms 82 ms [facility] MUSE Q-T Interval ms 378 ms [facility] MUSE QTC Calculation (Bezet) 425 ms [facility] MUSE Calculated P [place] 15 degrees SL MUSE Calculated R [place] 82 degrees [facility] MUSE Calculated T [place] 77 degrees [facility] MUSE Interpretation EKG Atrial-paced rhythm ABNORMAL ECG NO PREVIOUS ECGS AVAILABLE Confirmed by EMILY MARTINI MD ([id number]) on 01/12/2025 4:01:30 PM [facility] MUSE 01/09/2025 5:11 PM CDT 01/12/2025 4:01 PM CDT Damaris Schmidt MD ECG ORDERABLES Edited Resul t - Final [facility] MUSE * ECHO COMPLETE W CONTRAST W [...] PACS LVOT diam 2.041 cm [facility] I PACS LVPWd 1.027 cm [facility] I PACS LV biplane EF 60.863 % [facility] CV FUJI PACS LV A2C EF 62.153 % [facility] I PACS LV A4C EF 60.617 % [facility] I PACS LV EDV A2C 80.381 ml [...] PACS LVOT VTI 16.886 cm [facility] I PACS RV-angela basal diam 3.802 cm [facility] RVOT pk marcel 59.63 cm/s [facility] CV F UJI PACS RVOT VTI 10.293 cm [facility] I PACS LA size 3.462 cm [facility] I PACS LA vol BP 41.174 ml [facility] I PACS RA area 12.93 cm [facility] [...] 3:50 PM Patient Status: I/P Study Site: [facility] Primary Location: [facility] EStudy Info Technical Quality: Adequate Exam [...] Physician: Haider Ellison Fellow: Luis A Irwin Hide Selector: Espinoza Cruz Left Ventricle The left ventricular [...] 3:50 PM Patient Status: I/P Study Site: [facility] Primary Location: [facility] EStudy Info Technical Quality: Adequate Exam [...] Physician: Haider Ellison Fellow: Luis A Irwin Hide Selector: Espinoza Cruz Left Ventricle The left ventricular [...] DATE/TIME OF EXAM: 01/09/2025 1:12 PM, LOCATION [facility] INDICATION: I63.512: Acute ischemic left MCA stroke [...] DATE/TIME OF EXAM: 01/09/2025 1:12 PM, LOCATION [facility] INDICATION: I63.512: Acute ischemic left MCA stroke [...] DATE/TIME OF EXAM: 01/07/2025 10:06 AM, LOCATION [facility] INDICATION: R29.898: RUE weakness I63.512: Acute ischemic [...] DATE/TIME OF EXAM: 01/07/2025 10:06 AM, LOCATION [facility] INDICATION: R29.898: RUE weakness I63.512: Acute ischemic [...] Tirso Brock MD on 01/07/2025 10:44 AM us Haider [...] LIPID PROFILE (01/07/2025 2:33 AM CDT) Pathologist [facility] Cholesterol Total 154 <200 mg/dL 01/07/2025 3:39 AM [facility] HDL 71 >40 mg/dL 01/07/2025 3:39 AM [facility] Comment: ATP III Classification of HDL Cholesterol: <40 mg/dL: Considered a major risk factor. >60 mg/dL: Considered a negative risk factor. LDL Calculated 68 <100 mg/dL 01/07/2025 3:39 AM [facility] Comment: ATP III Classification of LDL Cholesterol: <100 mg/dL: Optimal 100 - 129 mg/dL: Near Optimal/Above Optimal 130 - 159 mg/dL: Borderline High 160 - 189 mg/dL: High >190 mg/dL: Very High LDL is calculated using the Friedewald equation. Triglycerides 77 <150 mg/dL 01/07/2025 3:39 AM [facility] Comment: ATP III Classification of Triglycerides: <150 mg/dL: Normal 150 - 199 mg/dL: Borderline High 200 - 400 mg/dL: High >500 mg/dL: Very High Blood BLOOD SPECIMEN / Unknown Venipuncture / Unknown 01/07/2025 2:33 AM CDT 01/07/2025 2:50 AM CDT us Haider Ellison MD LAB - CHEMISTRY ORDERABLES Final Result Performing Organization Address City/[facility]/ZIP Co de Phone Number [place] [phone] [place] [address], [facility] [phone] * (ABNORMAL) HEMOGLOBIN A1C (01/06/2025 4:48 PM CDT) Hemoglobin A1c 5.8(H) <=5.6 % 01/07/2025 9:59 AM CDT [facility] Estimated Average Glucose 120 mg/dL 01/07/2025 9:59 AM CDT [facility] Comment: HbA1c Interpretation: Normal : < 5.7% Pre-diabetes: 5.7-6.4% Diabetes: Equal to or greater than 6.5% Test results diagnostic of diabetes should be repeated for confirmation. Treatment target values recommended by ADA and other clinical organizations should be used to evaluate metabolic control in patients. Reference: [place] Diabetes Association, Standards of Care in Diabetes -2020 In patients 70 years and older consider HbA1c target range of 7.0-7.5% (Reference: Jarek Thomson et al. JAMDA. 2012) The Sebia assay for the measurement of HbA1c is a National Glycohemoglobin Standardization Program (NGSP) certified method. Blood BLOOD SPECIMEN / Unknown Venipuncture / Unknown 01/06/2025 4:48 PM CDT 01/06/2025 5:00 PM CDT Haiedr Ellison MD LAB - CHEMISTRY ORDERABLES Final Result Performing Organization Address City/[facility]/ZIP Co de Phone Number [address] [address], [facility] [phone] * TROPONIN-I HIGH SENSITIVE REFLEX 1HOUR (01/06/2025 11:26 AM CDT) Troponin I High Sensitive 7 <=35 ng/L 01/06/2025 12:13 PM CDT [facility] Delta Troponin I HS 01/06/2025 12:13 PM CDT [facility] Comment:Delta value intentio cassius not calculated. Baseline to 1 hour specimen collection interval exceeded. Blood BLOOD SPECIMEN / Unknown Venipuncture / Unknown 01/06/2025 11:26 AM CDT 01/06/2025 11:34 AM CDT Result [facility] Haider Ellison MD LAB - CHEMISTRY ORDERABLES Final Result Performing Organization Address [facility]/ZIP Co de Phone Number [address] [address], [facility] [phone] * PTT [facility] (01/06/2025 10:34 AM CDT) APTT 31.6 23.0 - 38.4 Seconds 01/06/2025 11:14 AM T [facility] Comment:Suggested therapeuti c range for full dose I.V. unfractionated heparin therapy for venous thromboembolism is 71 to 109 seconds. Blood BLOOD SPECIMEN / Unknown Venipuncture / Unknown 01/06/2025 10:34 AM CDT 01/06/2025 10:53 AM CDT Result [facility] Isauro Aguilar MD LAB - COAGULATION ORDERABLES Final Result Performing Organization Address [facility] Co de Phone Number [address] [address], [facility] [phone] * PT-INR [facility] (01/06/2025 10:34 AM CDT) PT 12.7 12.1 - 14.8 Seconds 01/06/2025 11:14 AM [facility] INR 1.0 See Comment 01/06/2025 11:14 AM [facility] Comment:The suggested therap eutic range for standard coumadin (warfarin) therapy is an INR of 2.0-3.0. For high-risk patients (Mechanical Mitral Valve Prosthesis, etc.), the suggested prophylactic therapeutic range is an INR of 2.5-3.5. Blood BLOOD SPECIMEN / Unknown Venipuncture / Unknown 01/06/2025 10:34 AM CDT 01/06/2025 10:53 AM CDT Isauro Aguilar MD LAB - COAGULATION ORDERABLES Final Result [facility] [address] [place] [address], [facility] [phone] * CT ANGIO BRAIN NECK STROKE (01/06/2025 [...] detection. Report dictated by Robert Jalloh MD, ([employer]). I, Linda Dial MD have personally reviewed and interpreted this examination/study. > Interpreting Provider: Lnida Dial MD on 01/06/2025 6:05 PM Narrative 01/06/2025 6:05 PM CDT PROCEDURE: CT ANGIO BRAIN NECK STROKE, DATE/TIME OF EXAM: 01/06/2025 9:10 AM, LOCATION [facility] INDICATION: R29.898: RUE weakness ADDITIONAL CLINICAL INFORMATION: [...] STROKE, DATE/TIME OF EXAM: :10 AM, LOCATION [facility] INDICATION: R29.898: RUE weakness ADDITIONAL CLINICAL INFORMATION: [...] detection. Report dictated by Robert Jalloh MD, ([employer]). I, Linda Dial MD have personally reviewed and interpretedthis examination/study. > Interpreting Provider: Linda Dial MD on 01/06/2025 6:05 PM Isauro Aguilar MD CT ORDERABLES Final Result * TROPONIN-I HIGH SENSITIVE (01/06/2025 8:57 AM CDT) [facility] Troponin I High Sensitive 4 <=35 ng/L 01/06/2025 9:36 AM CDT [facility] Blood BLOOD SPECIMEN / Unknown Venipuncture / Unknown 01/06/2025 8:57 AM CDT 01/06/2025 9:16 AM CDT us Isauro Aguilar MD LAB - CHEMISTRY ORDERABLES F inal Result [address] [address], [place] [phone] * TROPONIN-I HIGH SENSITIVE BASELINE + 1HR (01/06/2025 8:57 AM CDT) [facility] Troponin I High Sensitive 4 <=35 ng/L 01/06/2025 9:36 AM CDT [facility] Blood BLOOD SPECIMEN / Unknown Venipuncture / Unknown 01/06/2025 8:57 AM CDT 01/06/2025 9:16 AM CDT us Haider Ellison MD LAB - CHEMISTRY ORDERABLES Final Result Performing Organization Address [facility]/ZIP Co de Phone Number [address] [address], [place] [phone] * CBC W AUTO DIFFERENTIAL (01/06/2025 8:57 AM CDT) [facility] WBC 7.5 4.0 - 10.7 x10E9/L 01/06/2025 9:12 AM CDT [facility] RBC Count 4.63 4.30 - 5.80 x10E12/L 01/06/2025 9:12 AM CDT [facility] Hemoglobin 14.2 13.3 - 17.5 g/dL 01/06/2025 9:12 AM CDT [facility] Hematocrit 41.8 38.7 - 51.1 % 01/06/2025 9:12 AM T [facility] MCV 90.3 80.0 - 98.0 fL 01/06/2025 9:12 AM [facility] MCH 30.7 26.7 - 33.6 pg 01/06/2025 9:12 AM [facility] MCHC 34.0 31.7 - 36.3 g/dL 01/06/2025 9:12 AM [facility] RDW-CV 13.5 11.3 - 14.8 % 01/06/2025 9:12 AM [facility] Platelet Count 163 150 - 420 x10E9/L 01/06/2025 9:12 AM [facility] [facility] MPV 10.3 7.8 - 11.4 fL 01/06/2025 9:12 AM [facility] Neutrophil % 61.8 41.0 - 74.0 % 01/06/2025 9:12 AM [facility] Lymphocyte % 22.8 17.0 - 47.0 % 01/06/2025 9:12 AM [facility] Monocyte % 10.3 3.0 - 11.0 % 01/06/2025 9:12 AM [facility] Eosinophil % 3.7 0.0 - 7.0 % 01/06/2025 9:12 AM [facility] Basophil % 1.1 0.0 - 1.6 % 01/06/2025 9:12 AM [facility] Immature Granulocytes % 0.3 0.0 - 1.0 % 01/06/2025 9:12 AM [facility] Neutrophil Absolute 4.66 1.60 - 7.50 x10E9/L 01/06/2025 9:12 AM [facility] Lymphocyte Absolute 1.72 1.00 - 4.40 x10E9/L 01/06/2025 9:12 AM [facility] Monocyte Absolute 0.78 0.15 - 1.00 x10E9/L 01/06/2025 9:12 AM [facility] Eosinophil Absolute 0.28 0.00 - 0.60 x10E9/L 01/06/2025 9:12 AM [facility] Basophil Absolute 0.08 0.00 - 0.13 x10E9/L 01/06/2025 9:12 AM [facility] Blood BLOOD SPECIMEN / Unknown Venipuncture / Unknown 01/06/2025 8:57 AM CDT 01/06/2025 9:06 AM [facility] Isauro Aguilar MD LAB - HEMATOLOGY ORDERABLES Final Result [facility] [address] [place] [phone], [facility] [phone] * (ABNORMAL) COMPREHENSIVE METABOLIC PANEL (01/06/2025 8:57 AM [facility]) BUN 6(L) 7 - 26 mg/dL 01/06/2025 9:31 AM [facility] Creatinine 0.59(L) 0.71 - 1.16 mg/dL 01/06/2025 9:31 AM [facility] Sodium 138 136 - 145 mmol/L 01/06/2025 9:31 AM [facility] Potassium 3.8 3.5 - 4.5 mmol/L 01/06/2025 9:31 AM [facility] Chloride 111(H) 98 - 107 mmol/L 01/06/2025 9:31 AM [facility] CO2 21(L) 22 - 29 mmol/L 01/06/2025 9:31 AM [facility] Glucose 97 70 - 99 mg/dL 01/06/2025 9:31 AM [facility] Calcium 8.2(L) 8.4 - 10.2 mg/dL 01/06/2025 9:31 AM [facility] Protein Total 6.4 6.0 - 8.3 g/dL 01/06/2025 9:31 AM [facility] Albumin 3.5 3.4 - 5.0 g/dL 01/06/2025 9:31 AM [facility] Bilirubin Total 0.3 0.2 - 1.2 mg/dL 01/06/2025 9:31 AM [facility] Alkaline Phosphatase 84 40 - 150 U/L 01/06/2025 9:31 AM [facility] ALT 23 5 - 55 U/L 01/06/2025 9:31 AM [facility] AST 31 5 - 34 U/L 01/06/2025 9:31 AM [facility] Anion Gap 6 6 - 16 01/06/2025 9:31 AM [facility] BUN/Creatinine Ratio 10 7 - 23 01/06/2025 9:31 AM [facility] Osmolality Calculated 284 275 - 295 mOsm/kg 01/06/2025 9:31 AM [facility] Albumin/Globulin Ratio 1.2 1.1 - 2.3 01/06/2025 9:31 AM [facility] eGFR by CKD-EPI >90 >=90 mL/min/1.7 3 m2 01/06/2025 9:31 AM [facility] Comment:Estimated Glomerular Filtration Rate (eGFR) calculated using the CKD-EPI Creatinine Equation (2020), per the [employer] and [place] [employer] recommendations. Blood BLOOD SPECIMEN / Unknown Venipuncture / Unknown 01/06/2025 8:57 AM CDT 01/06/2025 9:16 AM CDT us Isauro Aguilar MD LAB - CHEMISTRY ORDERABLES F inal Result [address] [id number], [facility] [phone] * ISTAT CREATININE (01/06/2025 8:36 AM CDT) Creatinine POCT 0.70 0.60 - 1.30 mg/dL 01/06/2025 9:08 AM [facility] eGFR by CKD-EPI >90 >90 mL/min/1.7 3 m2 01/06/2025 9:08 AM [facility] Sample iSTAT JASMINE 01/06/2025 9:08 AM [facility] Blood BLOOD SPECIMEN / Unknown 01/06/2025 8:36 AM CDT 01/06/2025 9:08 AM CDT us Haider Ellison MD LAB - POINT OF CARE ORDERAB LES Final Result [address] [phone], [facility] [phone] * INR WHOLE BLOOD - POINT OF CARE (IP) STROKE (01/06/2025 8:32 AM CDT) INR 1.1 0.9 - 1.2 01/06/2025 9:08 AM CDT [facility] Device [id number] 01/06/2025 9:08 AM CDT [facility] Chemical Engineer ID [id number] 01/06/2025 9:08 AM CDT [facility] Blood BLOOD SPECIMEN / Unknown 01/06/2025 8:32 AM CDT 01/06/2025 9:08 AM CDT us Haider Ellison MD LAB - POINT OF CARE ORDERAB LES Final Result Performing Organization Address City/[facility]/ZIP Co de Phone Number [address] [phone], [facility] [phone] * CT BRAIN - Stroke (01/06/2025 8:23 [...] DATE/TIME OF EXAM: 01/06/2025 8:44 AM, LOCATION [facility] INDICATION: R29.898: RUE weakness ADDITIONAL CLINICAL INFORMATION: [...] STROKE, DATE/TIME OF EXAM: 01/06/2025 8:44 AM,LOCATION [facility] INDICATION: R29.898: RUE weakness ADDITIONAL CLINICAL INFORMATION: [...] 8:44 AM 01/18/2025 1:01 PM Care Teams Greens Picker Relationship Specialty Start Date End Date Provider, No Pcp PCP - General 01/06/25
--- OUTSIDE RECORDS SUMMARY | 2025-02-05 00:29 | XMS_ITS | Clinical Summary ---
Author Organization [facility] Address [address] [place] [address] Care Team Providers Care Director Child Name Role Phone Pcp, No Primary Care Provider [phone] Allergies No known active allergies Medications metFORMIN [...] on file Legal Sex Male 8:55 PM [employer] Gender Identity Not on file Sexual Orientation [...] age to complete this topic Care Teams Director Child Relationship Specialty Start Date End Date Pcp, No [address] [place] [address] PCP - General 02/25/21
--- OUTSIDE RECORDS SUMMARY | 2025-02-05 00:29 | XMS_ITS ---
Author Organization Unknown ENCOUNTERS Encounter Performer Location Date Diagnosis Diagnosis Status Emergency [facility] [address] [place] [address] [id number] Pre Ad[address] [facility] [address] [place] [address] [phone] *Note: Encounters from your own facility or health system may be excluded. Allergies, Adverse Reactions, Alerts Allergen Type Severity Identification Date Medications Name Date Quantity Days Supplied GPI Number
== END 2025-02-05 00:41 | disposition left against medical advice (07) ==
PROVIDERS: Emergency Provider Student in an Organized Health Care Education/Training Program
DX: R10.30 Lower abdominal pain, unspecified (principal)
CPT/HCPCS: 93005; 99199